=== PATIENT | female | born 1995 | race Two or more races ===

== ENCOUNTER 2023-06-12 10:08 | Outpatient (OUT) | payer OTHER, SELFPAY ==
--- NOTE | 2023-06-12 10:12 | US_ITS ---
[address] [address] Patient Name: PERNELL VAN MRN: [id number] date: 1995 Sex: F Assigned Patient Location: US Current Patient Location: US Accession/Order Number: [id number] Exam Date: 06/12/2023 10:12 Report Date: 06/12/2023 11:49 At the request of: MELCHOR ROMO Procedure: US OB transvaginal EXAMINATION: US OB transvaginal HISTORY: MISSED MENSES COMPARISON: No relevant comparison available. FINDINGS: Navarro intrauterine gestation Gestational sac: 2.79 cm, 7 weeks 4 days CRL: 2.2 cm, 8 weeks 6 days Yolk sac: 4.6 mm Heart rate: 172 bpm Cervix: Closed, 4.1 cm The uterus is normal, anteverted, anteflexed The right ovary is normal. The left ovary is not visualized Clinical age: Unknown Ultrasound age: 8 weeks 6 days Ultrasound MIKE: 01/16/2024 US/US OB transvaginal IMPRESSION: Viable navarro intrauterine gestation measuring 8 weeks 6 days Electronically authenticated by: DEV GUTIERREZ Date: 06/12/2023 11:49
== END 2023-06-12 10:09 | disposition home or self-care (01) ==
PROVIDERS: Visit Provider Obstetrics & Gynecology
DX: Z34.91 Encounter for supervision of normal pregnancy, unspecified, first trimester (principal); Z3A.08 8 weeks gestation of pregnancy
CPT/HCPCS: 76817

== ENCOUNTER 2023-09-01 08:26 | Outpatient (OUT) | payer OTHER, SELFPAY ==
--- NOTE | 2023-09-01 | US_ITS ---
[address] [address] Patient Name: PERNELL VAN MRN: [id number] date: 1995 Sex: F Assigned Patient Location: US Current Patient Location: Accession/Order Number: [id number] Exam Date: 09/01/2023 08:30 Report Date: 09/01/2023 09:58 At the request of: MELCHOR ROMO Procedure: US OB cervical length EXAMINATION: US OB cervical length, US OB anatomy HISTORY: CERVICAL LENGTH COMPARISON: No relevant comparison available. TECHNIQUE: Transabdominal sonographic examination was performed for obstetrical and evaluation. FINDINGS: Number: 1 Heart Rate: 141.0 bpm H.B. /min Amniotic Fluid Volume: Subjectively normal position: Cephalic presentation, longitudinal lie Placental Location: Anterior. Placental edge is 7.8 cm from the internal cervical os Cervix Length: 4.6 cm, closed Normal anatomy: Lateral ventricles, cerebellum, posterior fossa, nose, lips, orbits, four-chamber heart, RVOT, LVOT, diaphragm, stomach, kidneys, abdominal cord insertion, bladder, umbilical arteries, three-vessel cord, spine, extremities BIOMETRY: BPD: 4.8 cm 20 weeks 4 days , 56% HC: 18.2 cm 20 weeks 4 days, 49% AC: 15.2 cm 20 weeks 3 days, 43% FL: 3.4 cm 20 weeks 5 days , 50% EFW:359.6 grams; 13 ounces, 51% FL/AC: 22.3 FL/BPD: 70.3 HC/AC: 1.2 GESTATIONAL AGE: Age by EDC: 20 weeks 3 days Age by current US: 20 weeks 4 days MIKE by current US: 01/15/2024 MIKE by EDC: 01/16/2024 US/US OB cervical length IMPRESSION: Normal anatomy scan Closed cervix measuring 4.6 cm in length *Reference: [facility] Practice Guideline for the performance of Obstetric Ultrasound Examinations, May 24, 2007. Electronically authenticated by: DEV GUTIERREZ Date: 09/01/2023 09:58
--- NOTE | 2023-09-01 | US_ITS ---
[address] [address] Patient Name: PERNELL VAN MRN: [id number] date: 1995 Sex: F Assigned Patient Location: US Current Patient Location: US Accession/Order Number: [id number] Exam Date: 09/01/2023 08:30 Report Date: 09/01/2023 09:58 At the request of: MELCHOR ROMO Procedure: US OB anatomy EXAMINATION: US OB cervical length, US OB anatomy HISTORY: CERVICAL LENGTH COMPARISON: No relevant comparison available. TECHNIQUE: Transabdominal sonographic examination was performed for obstetrical and evaluation. FINDINGS: Number: 1 Heart Rate: 141.0 bpm H.B. /min Amniotic Fluid Volume: Subjectively normal position: Cephalic presentation, longitudinal lie Placental Location: Anterior. Placental edge is 7.8 cm from the internal cervical os Cervix Length: 4.6 cm, closed Normal anatomy: Lateral ventricles, cerebellum, posterior fossa, nose, lips, orbits, four-chamber heart, RVOT, LVOT, diaphragm, stomach, kidneys, abdominal cord insertion, bladder, umbilical arteries, three-vessel cord, spine, extremities BIOMETRY: BPD: 4.8 cm 20 weeks 4 days , 56% HC: 18.2 cm 20 weeks 4 days, 49% AC: 15.2 cm 20 weeks 3 days, 43% FL: 3.4 cm 20 weeks 5 days , 50% EFW:359.6 grams; 13 ounces, 51% FL/AC: 22.3 FL/BPD: 70.3 HC/AC: 1.2 GESTATIONAL AGE: Age by EDC: 20 weeks 3 days Age by current US: 20 weeks 4 days MIKE by current US: 01/15/2024 MIKE by EDC: 01/16/2024 US/US OB anatomy IMPRESSION: Normal anatomy scan Closed cervix measuring 4.6 cm in length *Reference: [facility] Practice Guideline for the performance of Obstetric Ultrasound Examinations, May 24, 2007. Electronically authenticated by: DEV GUTIERREZ Date: 09/01/2023 09:58
== END 2023-09-01 08:27 | disposition home or self-care (01) ==
LOC: US 08:26
PROVIDERS: Visit Provider Obstetrics & Gynecology
DX: Z34.92 Encounter for supervision of normal pregnancy, unspecified, second trimester (principal); Z36.89 Encounter for other specified antenatal screening; Z3A.20 20 weeks gestation of pregnancy
CPT/HCPCS: 76805; 76817

== ENCOUNTER 2023-09-22 20:30 | Outpatient (REF) | payer OTHER, SELFPAY ==
--- OUTSIDE RECORDS SUMMARY | 2023-09-22 20:34 | XMS_ITS | CCD ---
Author Name Unknown Address [address] [place] [address] Organization [facility] Care Team Providers Care Hot Braider Name Role Phone LindseyDary Unavailable [facility], DR MONTANEZ Primary Care Unavailable MARKER, DR MIRELES Admitting Unavailable MARKER, DR MIRELES Attending Unavailable GRECHNY, FRANK MOORE Consulting Unavailable MARKER, DR MIRELES Consulting Unavailable KLIPPERDEV Consulting Unavailable MARKER, DR MIRELES Admitting Unavailable MARKER, DR MIRELES Attending [facility] Primary Care Unavailable ZIEBER, DR POPPY Davis Consulting Unavailable MARKER, DR MIRELES Consulting Unavailable ELANBETI YOUNG Consulting Unavailable Rona Collado Unavailable Beti Steele Primary Care Provi amalia SHAKIRA OLVERA Attending Unavailable BETI CARVER Referring Unavailable BETI CARVER Primary Care Unavailable SHAKIRA OLVERA Referring Unavailable BETI CARVER Primary Care Unavailable BETI CARVER Referring Unavailable BETI CARVER Primary Care Unavailable Allergies Allergy Classification Reported Allergen(s) Allergy Type Date of Onset Reaction(s) Facility (6 sources) Amoxicillin; Translations: [Amoxicillin] Drug Allergy 07-24-2021 [facility] Repository (3 sources) Cefaclor; Translations: [Ceclor] Drug Allergy [facility] Repository (3 sources) Cefaclor; Translations: [CEFACLOR] Drug Allergy 07-24-2021 [facility] Medications Current Medications Medication Drug Class(es) Dates Sig (Normalized) Sig (Original) lidocaine 0.05 mg/mg medicated patch (1 source) Antiarrhythmic, Amide Local Anesthetic Start: 06-22-2023 apply 1 dose transdermal route once daily, then apply 1 dose transdermal route every twelve hours lidocaine (LIDODERM) 5 % Indications: DDD (degenerative disc disease), cervical Place 1 patch on the skin daily. Remove & Discard patch within 12 hours or as directed by 30 patch 1 06/22/2023 Active Problems Active Problems Problem Classification Problem Date Documented Date Episodic/Chronic Anxiety disorders (1 source) Anxiety attack ; Translations: [Panic disorder [episodic paroxysmal anxiety]] Onset: 08-07-2022 08-07-2022 Chronic Influenza (1 source) Influenza due to other identified influenza virus with other respiratory manifestations; Translations: [FLU D/T OTH ID FLU VIR OTH RSP MANF] Onset: 09-03-2022 Episodic Malaise and fatigue (1 source) Fatigue; Translations: [Chronic fatigue, unspecified] Onset: 11-27-2021 11-27-2021 Chronic Other connective tissue disease (3 sources) Pain in right leg; Translations: [PAIN IN RIGHT LEG] Onset: 09-03-2022 Episodic Other connective tissue disease (3 sources) Pain in left leg; Translations: [PAIN IN LEFT LEG] Onset: 09-02-2022 Episodic Other connective tissue disease (2 sources) Fibromyalgia; Translations: [Fibromyalgia] Onset: 03-16-2023 09-15-2023 Episodic Other connective tissue disease (2 sources) Fibromyalgia; Translations: [Fibromyalgia] Onset: 09-15-2023 Episodic Other non-traumatic joint disorders (4 sources) Pain in right hip; Translations: [PAIN IN RIGHT HIP] Onset: 09-01-2022 Episodic Other nutritional; endocrine; and metabolic disorders (1 source) Obesity, unspecified; Translations: [OBESITY UNSPECIFIED] Onset: 09-03-2022 Chronic Other nutritional; endocrine; and metabolic disorders (1 source) Body mass index (BMI) 31.0-31.9, adult; Translations: [BODY MASS INDEX BMI 31.0-31.9 ADULT] Onset: 09-03-2022 Chronic Other and delivery including normal (2 sources) ; Translations: [Encounter for supervision of normal , unspecified, unspecified trimester] Onset: 06-22-2023 06-22-2023 Episodic Residual codes; unclassified (1 source) Procedure and treatment not carried out due to patient leaving prior to being seen by health care provider Episodic Spondylosis; intervertebral disc disorders; other back problems (1 source) Degeneration of cervical intervertebral disc; Translations: [Other cervical disc degeneration, unspecified cervical region] Onset: 10-17-2022 10-17-2022 Chronic Substance-related disorders (1 source) Nicotine dependence, cigarettes, uncomplicated; Translations: [NICOTINE DEPEND CIGARETTES UNCOMP] Onset: 09-03-2022 Chronic Past or Other Problems Problem Classification Problem Date Documented Da te Episodic/Chronic Deficiency and other anemia (1 source) Iron deficiency anemia; Translations: [Iron deficiency anemia, unspecified] Onset: 11-27-2021 11-27-2021 Episodic Fluid and electrolyte disorders (1 source) Hyponatremia; Translations: [Hypo-osmolality and hyponatremia] Onset: 11-27-2021 11-27-2021 Episodic Headache; including migraine (2 sources) Cough headache syndrome; Translations: [Primary cough headache] Onset: 05-19-2022 05-19-2022 Episodic Immunizations and screening for infectious disease (1 source) Contact with and (suspected) exposure to other viral communicable diseases Onset: 09-02-2021 Resolved: 09-02-2021 Episodic Mood disorders (1 source) Mood disorders Onset: 10-07-2022 10-07-2022 Nonspecific chest pain (1 source) Precordial pain; Translations: [Other chest pain] Onset: 12-26-2021 12-26-2021 Episodic Nutritional deficiencies (1 source) Cobalamin deficiency; Translations: [Deficiency of other specified B group vitamins] Onset: 12-26-2021 12-26-2021 Episodic Other connective tissue disease (1 source) Pain in right hand; Translations: [Pain in right hand] Onset: 02-10-2022 Resolved: 01-14-2023 01-14-2023 Episodic Other nervous system disorders (1 source) Paresthesia of hand ; Translations: [Anesthesia of skin] Onset: 01-14-2023 01-14-2023 Episodic Other non-traumatic joint disorders (1 source) Pain of left shoulder joint; Translations: [Pain in left shoulder] Onset: 11-27-2021 11-27-2021 Episodic Other screening for suspected conditions (not mental disorders or infectious disease) (2 sources) Other specified abnormal findings of blood chemistry; Translations: [Possible ] Onset: 09-03-2022 Resolved: 06-22-2023 06-22-2023 Episodic Other upper respiratory disease (1 source) Nasal sinus problem; Translations: [Other specified disorders of nose and nasal sinuses] Onset: 05-19-2022 05-19-2022 Episodic Spondylosis; intervertebral disc disorders; other back problems (2 sources) Thoracic nerve root pain; Translations: [Radiculopathy, thoracic region] Onset: 11-27-2021 11-27-2021 Episodic Results Test Name Value Interpretation Reference Range Facility AFP panelon 08-15-2023 AFP SINGLE MARKER SCRN, MATERNAL, SERUM SEE COMMENTS 08/18/2023 01:[address] [facility] Comment on above: Result Comment: NOTE Test Result Flag Unit RefValue AFP Single Marker SCRN, Maternal, S Results Summary Normal risk Neural tube defect risk estimate 1/12,000 AFP 31.0 ng/mL AFP MoM 0.80 MoM <2.50 INTERPRETATION Screen negative for neural tube defects. RECOMMENDED FOLLOW UP None. Specimen collection date 08/15/23 Maternal date of 89 Calculated age at MIKE 28 years Maternal Weight 209 lbs Insulin dependent diabetes No Patient race non-Black Current cigarette smoking status Smoker MIKE by U/S scan 01/16/24 GA on collection by U/S scan 18,0 wk,d GA used in risk estimate Scan estimate Number of Fetuses 1 Number of Chorions Unknown IVF No Prev w/ Neural Tube Unknown Defect Patient or father of baby has a Unknown NTD Initial or repeat testing Initial testing Physician Phone Number [phone] GENERAL TEST INFORMATION See Note This screening provides an estimation of risk, not a diagnosis. Incorrect or incomplete information may significantly alter results. Results may be unreliable in twin pregnancies with a demise. Results are not available for pregnancies with triplets and higher-order multiples. A positive result occurs when the AFP MoM equals or exceeds 2.5. Screen results and family history influence individual risk. If there is a family history of a neural tube defect, chromosome abnormality, or other inherited condition, consider the option of a genetic consultation. For further information, please contact the maternal screening laboratory at . ADDITIONAL INFORMATION This test was developed and its performance characteristics determined by [facility] in a manner consistent with CLIA requirements. This test has not been cleared or approved by the U.S. Food and Drug Administration. Test Performed by: [facility] [address] [place] [address] Cigarette Making Machine Hopper Feeder: Carson Delcid M.D. Ph.D.; CLIA# [id number] Performed By: #### [id number] #### [facility] ([id number]) [address] [place] [address], [place] [address] CULTURE URINEon 09-02-2022 CULTURE URINE Culture Observations: MODERATE GROWTH OF MIXED GENITAL NAVEED. NO POTENTIAL PATHOGENS SEEN. Normal [facility] Comment on above: Performed By: #### U RCX #### [facility] [address] [place] [address] Dr. Nini Bliss D-DIMERon 09-02-2022 D-DIMER 0.68 mg/L FEU Critically high <=0.59 [facility] Comment on above: Performed By: #### D DIM #### [facility] [address] [place] [address] Dr. Nini Bliss D-DIMER COMMENTS SEE BELOW Normal [facility] Comment on above: Result Comment: Incr eases in D-Dimer concentration observed with thromboembolic events can be variable due to localization, size, and age of the thrombus. Therefore, a thromboembolic event cannot be diagnosed with certainty on the basis of the reference range. D-Dimers may also be elevated for a variety of disorders including: advanced age, , coronary disease, cancer, liver disease, infection, inflammation, hematoma, DIC, trauma, post-surgery, diabetes, thrombolytic or anticoagulant therapy, stress, and generalized hospitalization. Performed By: #### D DIM #### [facility] [address] [place] [address] Dr. Nini Bliss ER URINE PROFILEon 3 Bilirubin Ql (U) Negative Normal NEGATIVE [facility] Comment on above: Performed By: #### Trudi MATUTE UMICRO #### [facility] [address] [place] [address] Dr. Nini lBiss Clarity (U) CLEAR Normal CLEAR [facility] Comment on above: Performed By: #### Trudi MATUTE UMICRO #### [facility] [address] [place] [address] Dr. Nini Bliss Color (U) YELLOW Normal YELLOW [facility] Comment on above: Performed By: #### Trudi MATUTE UMICRO #### [facility] [address] [place] [address] Dr. Nini CACERES A micrscopic examination will be performed if indicated. Normal [facility] Comment on above: Performed By: #### Trudi MATUTE UMICRO #### [facility] [address] [place] [address] Dr. Nini Bliss Glucose Ql (U) Negative Normal NEGATIVE [facility] Comment on above: Performed By: #### Trudi MATUTE UMICRO #### [facility] [address] [place] [address] Dr. Nini Bliss Hemoglobin Ql (U) LARGE Abnormal NEGATIVE [facility] Comment on above: Performed By: #### Trudi MATUTE UMICRO #### [facility] [address] [place] [address] Dr. Nini Bliss Ketones Ql (U) Negative Normal NEGATIVE [facility] Comment on above: Performed By: #### Trudi MATUTE UMICRO #### [facility] [address] [place] [address] Dr. Nini Bliss LEUKOCYTES TRACE Abnormal NEGATIVE [facility] Comment on above: Performed By: #### Trudi MATUTE UMICRO #### [facility] [address] [place] [address] Dr. Nini Bliss Nitrite Ql (U) Negative Normal NEGATIVE [facility] Comment on above: Performed By: #### Trudi MATUTE UMICRO #### [facility] [address] [place] [address] Dr. Nini Bliss pH (U) 5.0 [pH] Normal 5-9 [facility] Comment on above: Performed By: #### NATHANAEL ROJASICRO #### [facility] [address] [place] [address] Dr. Nini Bliss Protein (U) [Mass/Vol] 100 mg/dL Abnormal NEGATIVE/ TRACE [facility] Comment on above: Performed By: #### Trudi MATUTE UMICRO #### [facility] [address] [place] [address] Dr. Nini Bliss SPEC GRAVITY 1.025 Normal 1.005-<=1.025 [facility] Comment on above: Performed By: #### Trudi MATUTE UMICRO #### [facility] [address] [place] [address] Dr. Nini Bliss UR MICRO IND INDICATED Normal [facility] Comment on above: Performed By: #### NATHANAEL ROJASICRO #### [facility] [address] [place] [address] Dr. Nini Bliss Urobilinogen Qn (U) 0.2 {Michelle'U}/dL Normal 0.2 - 1.0 [facility] Comment on above: Performed By: #### Trudi MATUTE ICRO #### [facility] [address] [place] [address] Dr. Nini Bliss INFLUENZA A AND B AGon 09-02 INFLUENZA A AG Positive Abnormal NEGATIVE SEE COMMENT [facility] Comment on above: Performed By: #### I NFLUAB #### [facility] [address] [place] [address] Dr. Nini Bliss INFLUENZA B AG Negative Normal NEGATIVE SEE COMMENT [facility] Comment on above: Performed By: #### I NFLUAB #### [facility] [address] [place] [address] Dr. Nini Bliss URINE MICROSCOPIC ONLYon BACTERIA MODERATE Abnormal NONE SEEN [facility] Comment on above: Performed By: #### Trudi MATUTE UMICRO #### [facility] [address] [place] [address] Dr. Nini Bliss Bacteria identified Cx Nom (U) INDICATED Normal [facility] Comment on above: Performed By: #### E JUJU, UMICRO #### [facility] [address] [place] [address] Dr. Nini Bliss CAST NONE SEEN Normal NONE SEEN [facility] Comment on above: Performed By: #### E JUJU, UMICRO #### [facility] [address] [place] [address] Dr. Nini Bliss Crystals LM Nom (Urine sed) NONE SEEN Normal NONE SEEN [facility] Comment on above: Performed By: #### Trudi MATUTE UMICRO #### [facility] [address] [place] [address] Dr. Nini Bliss Epithelial cells LM Ql (Urine sed) FEW Abnormal NONE SEEN /RARE [facility] Comment on above: Performed By: #### Trudi MATUTE UMICRO #### [facility] [address] [place] [address] Dr. Nini Bliss MUCOUS NONE SEEN Normal NONE SEEN [facility] Comment on above: Performed By: #### Trudi MATUTE UMICRO #### [facility] [address] [place] [address] Dr. Nini Bliss RBC 75-100 Abnormal 0-2 [facility] Comment on above: Performed By: #### Trudi MATUTE UMICRO #### [facility] [address] [place] [address] Dr. Nini Bliss WBC 0-2 Abnormal NONE SEEN [facility] Comment on above: Performed By: #### Trudi MATUTE UMICRO #### [facility] [address] [place] [address] Dr. Nini Bliss US BAR DOP LEG BILon 023 US BAR DOP LEG ABISAI EXAMINATION: US BAR DOP LEG ABISAI HISTORY: Pain in bilateral legs ; right hip pain; elevated d-dimer COMPARISON: No relevant comparison available. FINDINGS: REGION: Bilateral lower extremities THROMBI: None. COMPRESSIBILITY: Normal compressibility. FLOW: Normal waveform and antegrade flow between 5 and 20 cm/s. OTHER: None. IMPRESSION: 1. No deep vein thrombus within the right or left lower extremity. Electronically authenticated by: POPPY ROBERT Date: 2022-09-02 07:57 Normal [facility] XR HIP RT 2 3V W PELVISon XR HIP RT 2 3V W PELVIS EXAM: XR HIP RT 2 3V W PELVIS HISTORY: Right hip pain COMPARISON: None. TECHNIQUE: AP pelvis and 2 views of the right hip FINDINGS: No osseous lesion, fracture, dislocation or subluxation. Joint spaces are normal. No visualized effusion. IMPRESSION: Normal x-rays Electronically authenticated by: DEV MARTINEZ Date: 2022-09-01 22:33 Normal [facility] COVID Quick Testingon 2021 Result Negative [facility] Other Vital Signs Date Time Vital Sign Value Performing Clinician Facility 09-15-2023 09:28-0500 Body height 166.4 cm Shakira Lindene V, PA [facility] 09-15-2023 09:28-0500 Body mass index (BMI) [Ratio] 34.25 kg/m2 Shakira Shendge V, PA Work Phone: [facility] [employer] [facility] 09-15-2023 09:28-0500 Body weight 94.8 kg Shakira Shendge V, PA Work Phone: [facility] 09-15-2023 09:28-0500 Diastolic blood pressure 60 mm[Hg] Shakira Shendge V, PA Work Phone: [facility] 09-15-2023 09:28-0500 Respiratory rate 18 /min Shakira Shendge V, PA Work Phone: [facility] 09-15-2023 09:28-0500 Systolic blood pressure 106 mm[Hg] Shakira Shendge V, PA Work Phone: [facility] 09-02-2021 14:00-0500 Body height 168.91 cm Dary Portillo Other [facility] Other 09-02-2021 14:00-0500 Body mass index (BMI) [Ratio] 30.2 kg/m2 Dary Portillo Other [facility] Other 09-02-2021 14:00-0500 Body temperature 97.1 [degF] Dary Portillo Other [facility] Other 09-02-2021 14:00-0500 Body weight 86.18 kg Dary Portillo Other [facility] Other 09-02-2021 14:00-0500 Respiratory rate 18 /min Dary Portillo Other [facility] Other 09-02-2021 14:00-0500 SaO2% (BldA) [Mass fraction] 99 % Dary Portillo Other [facility] Other Encounters Encounter Date Encounter Type Care Provider Facility Start: 09-18-2023 [facility] Start: 09-15-2023 End: 09-15-2023 ambulatory SHAKIRA ESTRADA [facility] Start: 09-15-2023 End: 09-15-2023 Office outpatient visit 15 minutes Shakira MARIE Work Phone: [facility] Comment on above: Fibromyalgia (Primar y Dx) Start: 08-15-2023 End: 08-16-[address] [facility] Start: 09-02-2022 End: 09-03-[address] ALINE MORELAND Facility:[facility] Start: 09-01-2022 End: 09-02-[address] DOCTOR MARR Facility:[facility] Start: 08-30-2022 (URG) Urgent Care Visit Rona burns [facility] Start: 08-30-2022 End: 08-30-2022 ambulatory Rona Collado Other [facility] Other Start: 09-02-2021 End: 09-02-2021 ambulatory Dary Wolfeault Other [facility] Other Start: 09-02-2021 Office outpatient vi sit 15 minutes Dary Portillo [facility] Procedures Date Procedure Procedure Detail Performing Clinician Start: 10-07-2022 Adult depression scr eening assessment FRANK Sanabria Work Phone: Start: 08-06-2021 History of tonsillectomy S/P tonsill ectomy FRANK Sanabria Work Phone: Plan of Treatment Date Care Activity Detail Author Start: 09-15-2024 Adult BMI Screening Adult BMI Screening [facility] Start: 06-22-2024 Tobacco Screening Tobacco Screening [facility] Start: 02-01-2024 End: 02-01-2024 Patient encounter procedure 02/01/2024 8:45 AM EDT Office Visit [facility] [address] [place] [phone] Shakira Estrada PA [address] [place] [phone] [facility] Start: 12-21-2023 End: 12-21-2023 Patient encounter procedure 12/21/2023 7:40 AM EDT Office Visit [facility] [address] [place] [address] [place] [id number] Beti Carver, [employer]ACH[employer] SPECIALIST [address] [facility] [address], [place] [address] [facility] Start: 10-07-2023 Depression Screening Depression Screening [facility] Start: 04-24-2023 Influenza vaccination Influenza Vaccine [facility] Start: 04-12-2017 DTaP,Tdap and Td Vaccines (7 - Tdap) DTaP,Tdap and Td Vaccines (7 - Tdap) [facility] Start: 2015 Screening for malignant neoplasm of cervix Pap Smear [facility] Start: 2012 Adult BMI Follow Up Plan Adult BMI Follow Up Plan [facility] Start: 1994 Tobacco Counseling Tobacco Counseling [facility] Payers Date Payer Category Payer Private Health Insurance [facility] [employer]/[place] [id number] 2022-Present [phone] [address] [address] [place] [address] [id number] 1994 Unknown [id number] 1994 Unknown [id number] 1994 Unknown [id number] 1994 Unknown [id number] 1994 Unknown [id number] 1959 Unknown [id number] Unknown [id number] Social History Date Type Detail Facility Start: 10-07-2022 End: 01-21-[address] [facility] Start: 01-14-2023 [facility] History of tobacco use Cigarette Smoker P [facility] Start: 01-14-2023 Tobacco use and exposure Smoke less tobacco non-user [facility] Start: 09-15-2023 Alcohol intake Lifetime non-d minerva (finding) [facility] Start: 10-07-2022 End: 01-21-20[address] of [address] [facility] Do you belong to any clubs or organizations such as rastafari groups, unions, fraternal or athletic groups, or school groups? No [facility] Are you now , , , , never or living with a partner? [facility] How often to you hav e a drink containing alcohol? Never [facility] How many standard dr inks containing alcohol do you have on a typical day? Patient does not drink [facility] How hard is it for y ou to pay for the very basics like food, housing, medical care, and heating Not very hard [facility] Start: 11-26-[address] [facility] Start: 1994 Sex Assigned At Female P [facility] Start: 08-03-2021 Gender identity Identifies as female gender (finding) [facility] History of Present illness Narrative 09-15-2023 FRANK Sanabria - 09/15/2023 9:30 AM EST Note Date & Type Note Facility 09-15-2023 History of Present illness Narrative Images from the original note were not included. [id number] [phone] Date of Service: 09/15/2023 Thank you for the referral to evaluate Pernell Ryan for widespread pain This is a new patient and is seen at the request of SEAN ZUÑIGA. Chief Complaint: Widespread pain SUBJECTIVE: Pernell Ryan is a 27 y.o. female who presents today for follow-up evaluation of widespread pain Patient got in April 2023 I discontinued both Cymbalta and tizanidine Her symptoms are persistent at this time and there is increased and odd work hours and her sleep is affected Visit history from 04/16/2023 Pain has improved by 40-50% Sleep has been more restful Visit history from 03/16/2023 Pernell Ryan is a 27 y.o. female who presents today for evaluation of widespread pain PAIN: Location: widespread, back, neck and head is worse Timing (When do the symptoms occur): all day long Duration/Onset: 2012 Severity: 4-6/10 Quality : deep bony pain Context (How did this begin): Symptoms started in 2012 got progressively worse, especially due to high stress around 2016 when she was going through divorce Modifying Factors (What makes it better or worse):heat makes it worse , cold helps Associated signs and symptoms: chronic fatigue, tingling and numbness in arms , sleep disturbances , works third shift 9:30 pm to 6:30 am since 2.5 years. Before that she worked during the day , she thinks her arms swell up, and experiences stiffness Previous medications/treatment: Biofreeze patches Mom- MS maternal aunt lupus maternal cousin fibromyalgia Current Outpatient Medications Medication Sig Dispense Refill lidocaine (LIDODERM) 5 % Place 1 patch on the skin daily. Remove & Discard patch within 12 hours or as directed by MD 30 patch 1 No current facility-administered medications for this visit. reviewed. Patient Active Problem List Diagnosis S/P tonsillectomy Iron deficiency anemia Hyponatremia Chronic fatigue Pain in joint of left shoulder Radicular pain of thoracic region Cervical muscle pain Vitamin B 12 deficiency Mid sternal chest pain Cough headache Chronic daily headache Sinus pressure Anxiety attack DDD (degenerative disc disease), cervical Numbness and tingling in left hand Fibromyalgia syndrome reviewed. Past Surgical History: Procedure Laterality Date ADENOIDECTOMY Jul 29 2021 SECTION TONSILLECTOMY Jul 29 2021 TONSILLECTOMY ADENOIDECTOMY Bilateral 07/29/2021 Performed by Emmanuel Spencer MD PhD at [facility] reviewed. Social History Tobacco Use Smoking status: Every Day Types: Cigarettes Smokeless tobacco: Never Vaping Use Vaping Use: Never used Substance Use Topics Alcohol use: Never Drug use: Never reviewed. Past Medical History: Diagnosis Date Allergic Childhood Amoxicillin; ceclor Allergic rhinitis Childhood Seasonal allergies Asthma Childhood Not put on my records, they thought it would go away Back pain Teen years to present Breathlessness lying flat Cough headache 05/19/2022 Fibromyalgia syndrome 03/16/2023 Numbness Obesity Pneumonia Childhood Mycoplasma Scoliosis Childhood Scoliosis Strep throat Tonsillar abscess Tonsillitis Varicella Toddler Vaccinated but got chicken pox a little later Visual impairment glasses Weakness reviewed. Social History Social History Narrative Not on file reviewed Family History Problem Relation Age of Onset COPD Mother Miscarriages / Stillbirths Mother Arthritis Father Hypertension Father Depression Brother Alcohol abuse Paternal Uncle Heart disease Maternal Grandmother Kidney disease Maternal Grandmother Alcohol abuse Maternal Grandmother Diabetes Maternal Grandmother Lung cancer Maternal Grandmother Heart disease Maternal Grandfather Hypertension Paternal Grandmother Stroke Paternal Grandmother reviewed. Allergies Allergen Reactions Amoxil [Amoxicillin] Ceclor [Cefaclor] reviewed. The following portions of the patient's history were reviewed and updated as appropriate: allergies, current medications, past family history, past medical history, past social history, past surgical history and problem list. REVIEW OF SYSTEMS: CONSTITUTIONAL: Admits: [] Weight Loss [] Fever [x] Frequent Night Sweats [x]fatigue OPHTHALMOLOGIC: Admits: [] Glaucoma [] History or Current Inflammatory Eye Disease [] Cataracts ENT: Admits: [] Oral/Nasal Ulcers [] epistaxis [] Recurrent Sinusitis [x] Dry Eyes [] Dry mouth CARDIOVASCULAR: Admits: [] Chest pain [] Pericarditis/Pleuritis [] Palpitations [] Edema RESPIRATORY: Admits: [] hemoptysis [] Dyspnea on Exertion [] Cough: smokes 2 cigarettes a day x on and off for last 7 years [] Wheezing GASTROINTESTINAL: Admits: [] Bloody Stool [x] Diarrhea [] Vomitting constipation+ GENITOURINARY: Admits: [] Blood in urine [] Genital Ulcers [] Burning/pain with urination MUSCULOSKELETAL: Admits: [x] Muscle Pain [x] Joint Pain INTEGUMENTARY: Admits: [] Skin changes [] Sclerodactyly [] Raynauds [x] Photosensitivity [] Alopecia NEUROLOGIC: Admits: [x] Recurrent Headaches [x] Limb Weakness [x] Numbness/Tingling PSYCHIATRIC: Admits: [x] Insomnia [x] Depression [x] Anxiety ENDOCRINE: Admits: [] Thyroid abnormalities HEMATOLOGY/LYMPH: Admits: [] Notable Swollen Lymph Nodes [x] History of Cytopenias [x] Bruising tendency [] History of DVT/PE miscarriages: no All non checked boxes, patient denies. All other 10 point ROS reviewed and negative. PHYSICAL EXAMINATION: Constitutional: BP 106/60 Resp 18 Ht 166.4 cm (5' 5.5 ) Wt 94.8 kg (209 lb) LMP 12/24/2022 (Approximate) BMI 34.25 kg/m : reviewed Comfortable, pleasant, no acute distress Labs & Imaging: Labs and Imaging reviewed and discussed with the patient during the visit. No results found for: RF , C3 , C4 Lab Results Component Value Date WBC 7.2 06/15/2023 HGB 13.0 06/15/2023 HCT 38.4 06/15/2023 MCV 83 06/15/2023 PLT 218 06/15/2023 Lab Results Component Value Date CREATININE 0.77 11/27/2021 BUN 8 11/27/2021 K 3.8 11/27/2021 CL 103 11/27/2021 CO2 30 11/27/2021 Lab Results Component Value Date ALT 13 11/27/2021 AST 18 11/27/2021 ALKPHOS 84 11/27/2021 Lab Results Component Value Date SEDRATE 3 02/11/2023 Lab Results Component Value Date CRP 0.4 02/11/2023 MR brain with and without contrast Result Date: 01/13/2023 Narrative: STUDY: MR BRAIN W WO CONT INDICATION: Cervical radiculopathy; Cervical spondylosis without myelopathy. COMPARISON: None TECHNIQUE: * Routine multiplanar multisequence MR imaging of the brain was performed with and without intravenous contrast. * Contrast: 9 mL Prohance FINDINGS: No evidence of acute infarct, intracranial hemorrhage, mass effect, midline shift or extra-axial fluid. Ventricles, sulci and cistern are unremarkable. Brain volume is age appropriate. No significant parenchymal signal abnormality. Globes and orbits are unremarkable. Paranasal sinuses are clear. Temporal bones are clear. No evidence of abnormal enhancement. IMPRESSION: * Unremarkable brain, by MR. Finalized by Christopher Archer on 01/13/2023 8:39 AM ASSESSMENT/PLAN: Pernell Ryan is a 27 y.o. female patient presents for evaluation of widespread pain Patient established care with mi on 02/11/2023 ICD-10-CM 1. Fibromyalgia M79.7 Orders Placed This Encounter Procedures Ambulatory referral to Massage Therapy ([facility]) Standing Status: Future Standing Expiration Date: 09/15/2024 Referral Priority: Routine Referral Type: Physical Therapy Number of Visits Requested: 1 Ambulatory referral to Physical Therapy Standing Status: Future Standing Expiration Date: 09/15/2024 Referral Priority: Routine Referral Type: Physical Therapy Referral Reason: Specialty Services Required Requested Specialty: Rehabilitation Number of Visits Requested: 1 #Fibromyalgia The patient has widespread pain, on both sides of the body, above and below the waist. 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 - She is currently and due date is in DECEMBER 2023 - discontinue Cymbalta tizanidine until after the delivery - Physical therapy referral - massage therapy referral - consider magnesium supplements -- talk with OB before taking it # medication monitoring encounter NSAID potential side effects potential side effects of NSAID's including abnormal kidney function, gastrointestinal pain/heartburn/nausea, potential for gastritis/gastric ulcer with chronic use, tinnitus, rash, increase risk of cardiac events Follow up in 3 month Total time spent with the patient face to face was 20 minutes which included obtaining and reviewing history, performing an exam, educating and counseling the patient, communicating test results to the patient. Preparing to see the patient (reviewing all results, history, medications, my office notes, other physician notes), ordering tests/medications/referrals, documenting in the patient's health record time spent was 10 minutes This note was created with the assistance of a speech recognition program. While intending to generate a timely document that accurately reflects the content of the visit, no guarantee can be provided that every grammatical or spelling mistake has been or will be identified or corrected. Thank you for your understanding. [facility] Shakira Estrada PA-C [address] [place] [address] Office [phone] FRANK Sanabria 09/15/23 1037 documented in this encounter [facility] Evaluation note 08-30-2022 Note Date & Type Note Facility 08-30-2022 Evaluation note Encounter Date Diagnosis Assessment Notes Aug, Patient left without being seen (ICD-10 - Z53.21) [facility] Other Evaluation note 09-02-2021 Note Date & Type Note Facility 09-02-2021 Evaluation note Encounter Date Diagnosis Assessment Notes Aug, Contact with and (suspected) exposure to other viral communicable diseases (ICD-10 - Z20.828) Even though COVID RAPID test is NEGATIVE, I am highly suspicious at this time you may be positive due to the symptoms. Recommend patient follow Quarantine guidelines until you follow up with PCP.. Recommend OTC medication such as Mucinex, Sea salt nasal spray, Cepecol, Tylenol, Zyrtec, as they can help with symptoms VIRAL URI HANDOUT GIVEN TO PATIENT THAT RECOMMENDS OTC MEDICATIONS, FOLLOW UP AND WHEN TO SEEK EMERGENCY TREATMENT Aug, Other Additional time spent conducting pre-visit phone call, screening for symptoms, instructions on social distancing, application and removal of PPE, and cleaning of examination room, equipment and supplies was preformed. Patient education given for testing methodology and results. Patient care instructions given in writting by [facility] document. [facility] Other History general Narrative - Reported 07-24-2021 Note Date & Type Note Facility 07-24-2021 History general N arrative - Reported Type Surgical History tonsillectomy and adenoidectomy 07/2021 [facility] Other Evaluation note Note Date & Type Note Facility Evaluation note Diagnosis Fibromyalgia- Primary Unspecified myalgia and myositis documented in this encounter [facility] Instructions Note Date & Type Note Facility Instructions Not on filedocumented in this en counter [facility] Summary Purpose Family History No Family History Records FoundNo Family History Records FoundNo Family History Records Found Advance Directives No Advanced Directives Records FoundNo Advanced Directives Records FoundNo Advanced Directives Records Found Reason for Referral Specialty Diagnoses / Procedures Referred By Osman loaiza Referred To Contact Rehabilitation Diagnoses [place] [address] [place] [address] [address] [place] [address] [facility] [address] [place] [address] Referral ID Status Reason Start Date Expiration Date Visits Requested Visits Authorized [id number] Authorized Specialty Services Required 09/15/2023 09/14/2024 1 1 Specialty Diagnoses / Procedures Referred By Contshelly t Referred To Contact Diagnoses Fibromyalgia Shakira Estrada PA [address] [facility] [place] [address] Referral ID Status Reason Start Date Expiration Date V isits Requested Visits Authorized [id number] Pending Review 09/15/2023 09/14/2024 1 1 Additional Source Comments REASON FOR VISIT (unrecogniz ed section and content) #17 SILVER VAN, EXPOSURE, LO SS OF TASTE, H/A, RUNNY NOSE, COVID Provider VisitSORE THROAT, CONGESTION, COUGH INFORMATION SOURCE (unrecogn ized section and content) DATE CREATED AUTHOR 09/03/2022 [facility] DATE CREATED AUTHOR AUTHOR'S ORGANIZ ATION 09/18/2023 [facility] DATE CREATED AUTHOR AUTHOR'S ORGANIZ ATION 09/20/2023 [facility] Care Teams (unrecognized sec tion and content) Hot Braider Relationship Specialty Start Date End Date Beti Carver, GUM MIXER[employer]MACHINE SHOP SPECIALIST [address], [place] [address] [place], [place] [id number] PCP - General Family Medicine 11/27/21 FOR RECORDS PERTAINING TO PATIENTS WHO ARE OR HAVE BEEN ENROLLED IN A CHEMICAL DEPENDENCY/SUBSTANCEABUSE PROGRAM, SOME INFORMATION MAY BE OMITTED. This clinical summary was aggregated from multiple sources. Caution should be exercised in using it in the provision of clinical care. This summary normalizes information from multiple sources, and as a consequence, information in this document may materially change the coding, format and clinical context of patient data. In addition, data may be omitted in some cases. CLINICAL DECISIONS SHOULD BE BASED ON THE PRIMARY CLINICAL RECORDS. [facility] [employer] [facility]. provides no warranty or guarantee of the accuracy or completeness of information in this document.
[2023-09-26 14:10] LABS: Age Gdln ACOG Testing Note (.); IGP, rfx Aptima HPV ASCU Note (.)
== END 2023-09-22 20:31 | disposition home or self-care (01) ==
LOC: LAB 20:30
PROVIDERS: Visit Provider Physician Assistant
DX: Z01.419 Encounter for gynecological examination (general) (routine) without abnormal findings (principal)
CPT/HCPCS: G0145

== ENCOUNTER 2023-10-02 03:00 | Emergency (ER) | payer OTHER, SELFPAY ==
[2023-10-02] VITALS (15 sets, daily range): BP systolic 112; BP diastolic 70; PULSE 76–92; RESP 7–24; TEMP 36.9; O2SAT 99–100; BMI 34.9
--- OUTSIDE RECORDS SUMMARY | 2023-10-02 03:16 | XMS_ITS | CCD ---
Author Name Unknown Address [address] [place] [address] Organization [facility] Care Team Providers Care Integrated Circuit Layout Designer Name Role Phone LindseyDary Unavailable [facility], DR MONTANEZ Primary Care Unavailable MARKER, DR MIRELES Admitting Unavailable MARKER, DR MIRELES Attending Unavailable GRECHNY, FRANK MOORE Consulting Unavailable MARKER, DR MIRELES Consulting Unavailable KLIPPERDEV Consulting Unavailable MARKER, DR MIRELES Admitting Unavailable MARKER, DR MIRELES Attending [facility]available [facility] Primary Care Unavailable ZIEBER, [...] sources) Amoxicillin; Translations: [Amoxicillin] Drug Allergy 07-24-2021 [facility] Repository (3 sources) Cefaclor; Translations: [Ceclor] Drug Allergy [facility] Repository (3 sources) Cefaclor; Translations: [CEFACLOR] Drug Allergy 07-24-2021 [facility] Medications Current Medications Medication Drug [...] INDEX BMI 31.0-31.9 ADULT] Onset: 09-03-2022 Chronic Residual codes; unclassified (1 source) Procedure and [...] left shoulder] Onset: 11-27-2021 11-27-2021 Episodic Other and delivery including normal (2 sources) ; Translations: [Encounter for supervision of normal , unspecified, unspecified trimester] Onset: 06-22-2023 06-22-2023 Episodic Other screening for suspected conditions (not [...] SERUM SEE COMMENTS 08/18/2023 01:57 PM Normal [facility] Comment on above: Result Comment: NOTE Test [...] repeat testing Initial testing Physician Phone Number [phone] GENERAL TEST INFORMATION See Note This screening [...] developed and its performance characteristics determined by [facility] in a manner consistent with CLIA requirements. This test has not been cleared or approved by the U.S. Food and Drug Administration. Test Performed by: [facility] [address] [place] [address] Falsework Builder: Carson Delcid M.D. Ph.D.; CLIA# [id number] Performed By: #### 4 [id number] #### [facility] ([id number]) [address] [place] [address], [place] [address] CULTURE URINEon 09-02-2022 CULTURE URINE Culture Observations: MODERATE GROWTH OF MIXED GENITAL NAVEED. NO POTENTIAL PATHOGENS SEEN. Normal [facility] Comment on above: Performed By: #### U RCX #### [facility] [address] [place] [address] Dr. Nini Bliss D-DIMERon 09-02-2022 D-DIMER 0.68 mg/L FEU Critically high <=0.59 [facility] Comment on above: Performed By: #### D DIM #### [facility] [address] [place] [address] Dr. Nini Bliss D-DIMER COMMENTS SEE BELOW Normal [facility] Comment on above: Result Comment: Incr eases [...] hospitalization. Performed By: #### D DIM #### [facility] [address] [place] [address] Dr. Nini Bliss ER URINE PROFILEon 3 Bilirubin Ql (U) Negative Normal NEGATIVE [facility] Comment on above: Performed By: #### Trudi MATUTE UMICRO #### [facility] [address] [place] [address] Dr. Nini Bliss Clarity (U) CLEAR Normal CLEAR The [facility] Comment on above: Performed By: #### Trudi MATUTE UMICRO #### [facility] [address] [place] [address] Dr. Nini Bliss Color (U) YELLOW Normal YELLOW [facility] Comment on above: Performed By: #### Trudi AMTUTE UMICRO #### [facility] [address] [place] [address] Dr. Nini CACERES A micrscopic examination will be performed if indicated. Normal The [facility] Comment on above: Performed By: #### Trudi MATUTE UMICRO #### [facility] [address] [place] [address] Dr. Nini Bliss Glucose Ql (U) Negative Normal NEGATIVE The [facility] Comment on above: Performed By: #### Trudi MATUTE UMICRO #### [facility] [address] [place] [address] Dr. Nini Bliss Hemoglobin Ql (U) LARGE Abnormal NEGATIVE The [facility] Comment on above: Performed By: #### Trudi MATUTE UMICRO #### [facility] [address] [place] [address] Dr. Nini Bliss Ketones Ql (U) Negative Normal NEGATIVE The [facility] Comment on above: Performed By: #### Trudi MATUTE UMICRO #### [facility] [address] [place] [address] Dr. Nini Bliss LEUKOCYTES TRACE Abnormal NEGATIVE [facility] Comment on above: Performed By: #### Trudi MATUTE UMICRO #### [facility] [address] [place] [address] Dr. Nini Bliss Nitrite Ql (U) Negative Normal NEGATIVE The [facility] Comment on above: Performed By: #### Trudi MATUTE UMICRO #### [facility] [address] [place] [address] Dr. Nini Bliss pH (U) 5.0 [pH] Normal 5-9 The [facility] Comment on above: Performed By: #### NATHANAEL ROJASICRO #### [facility] [address] [place] [address] Dr. Nini Bliss Protein (U) [Mass/Vol] 100 mg/dL Abnormal NEGATIVE/ TRACE The [facility] Comment on above: Performed By: #### Trudi MATUTE UMICRO #### [facility] [address] [place] [address] Dr. iNni Bliss SPEC GRAVITY 1.025 Normal 1.005-<=1.025 The [facility] Comment on above: Performed By: #### Trudi MATUTE UMICRO #### [facility] [address] [place] [address] Dr. Nini Bliss UR MICRO IND INDICATED Normal The [facility] Comment on above: Performed By: #### NATHANAEL ROJASICRO #### [facility] [address] [place] [address] Dr. Nini Bliss Urobilinogen Qn (U) 0.2 {Michelle'U}/dL Normal 0.2 - 1.0 [facility] Comment on above: Performed By: #### Trudi MATUTE ICRO #### [facility] [address] [place] [address] Dr. Nini Bliss INFLUENZA A AND B AGon 09-02 INFLUENZA A AG Positive Abnormal NEGATIVE SEE COMMENT [facility] Comment on above: Performed By: #### I NFLUAB #### [facility] [address] [place] [address] Dr. Nini Bliss INFLUENZA B AG Negative Normal NEGATIVE SEE COMMENT [facility] Comment on above: Performed By: #### I NFLUAB #### [facility] [address] [place] [address] Dr. Nini Bliss URINE MICROSCOPIC ONLYon BACTERIA MODERATE Abnormal NONE SEEN The [facility] Comment on above: Performed By: #### Trudi MATUTE UMICRO #### [facility] [address] [place] [address] Dr. Nini Bliss Bacteria identified Cx Nom (U) INDICATED Normal The [facility] Comment on above: Performed By: #### E JUJU, UMICRO #### [facility] [address] [place] [address] Dr. Nini Bliss CAST NONE SEEN Normal NONE SEEN The [facility] Comment on above: Performed By: #### E JUJU, UMICRO #### [facility] [address] [place] [address] Dr. Nini Bliss Crystals LM Nom (Urine sed) NONE SEEN Normal NONE SEEN [facility] Comment on above: Performed By: #### Trudi MATUTE UMICRO #### [facility] [address] [place] [address] Dr. Nini Bliss Epithelial cells LM Ql (Urine sed) FEW Abnormal NONE SEEN /RARE The [facility] Comment on above: Performed By: #### Trudi MATUTE UMICRO #### [facility] [address] [place] [address] Dr. Nini Bliss MUCOUS NONE SEEN Normal NONE SEEN The [facility] Comment on above: Performed By: #### Trudi MATUTE UMICRO #### [facility] [address] [place] [address] Dr. Nini Bliss RBC 75-100 Abnormal 0-2 The [facility] Comment on above: Performed By: #### Trudi MATUTE UMICRO #### [facility] [address] [place] [address] Dr. Nini Bliss WBC 0-2 Abnormal NONE SEEN The [facility] Comment on above: Performed By: #### Trudi MATUTE UMICRO #### [facility] [address] [place] [address] Dr. Nini Bliss US BAR DOP LEG [...] POPPY ROBERT Date: 2022-09-02 07:57 Normal The [facility] XR HIP RT 2 3V W PELVISon [...] by: DEV MARTINEZ Date: 2022-09-01 22:33 Normal [facility] COVID Quick Testingon 2021 Result Negative [facility] Other Vital Signs Date Time Vital Sign Value Performing Clinician Facility 09-15-2023 09:28-0500 Body height 166.4 cm Shakira Lindene V, PA [facility] 09-15-2023 09:28-0500 Body mass index (BMI) [Ratio] 34.25 kg/m2 Shakira Shendge V, PA Work Phone: [facility] 09-15-2023 09:28-0500 Body weight 94.8 kg Shakira Shendge V, PA Work Phone: [facility] 09-15-2023 09:28-0500 Diastolic blood pressure 60 mm[Hg] Shakira Shendge V, PA Work Phone: [facility] 09-15-2023 09:28-0500 Respiratory rate 18 /min Shakira Shendge V, PA Work Phone: [facility] 09-15-2023 09:28-0500 Systolic blood pressure 106 mm[Hg] Shakira Shendge V, PA Work Phone: [facility] 09-02-2021 14:00-0500 Body height 168.91 cm Dary Portillo Other [facility] Other 09-02-2021 14:00-0500 Body mass index (BMI) [Ratio] 30.2 kg/m2 Dary Portillo Other [facility] Other 09-02-2021 14:00-0500 Body temperature 97.1 [degF] Dary Portillo Other [facility] Other 09-02-2021 14:00-0500 Body weight 86.18 kg Dary Portillo Other [facility] Other 09-02-2021 14:00-0500 Respiratory rate 18 /min Dary Portillo Other [facility] Other 09-02-2021 14:00-0500 SaO2% (BldA) [Mass fraction] 99 % Dary Portillo Other [facility] Other Encounters Encounter Date Encounter Type Care Provider Facility Start: 09-18-2023 ambulatory [facility] Start: 09-15-2023 End: 09-15-2023 ambulatory SHAKIRA ESTRADA [facility] Start: 09-15-2023 End: 09-15-2023 Office outpatient visit 15 minutes Shakira MARIE Work Phone: [facility] Comment on above: Fibromyalgia (Primar y Dx) Start: 08-15-2023 End: 08-16-2023 ambulatory BETI CARVER [facility] Start: 09-02-2022 End: 09-03-[address] ALINE MORELAND Facility:[facility] Start: 09-01-2022 End: 09-02-[address] DOCTOR MARR Facility:[facility] Start: 08-30-2022 (URG) Urgent Care Visit Rona burns [facility] Start: 08-30-2022 End: 08-30-2022 ambulatory Roan Collado Other [facility] Other Start: 09-02-2021 End: 09-02-2021 ambulatory Dary Wolfeault Other [facility] Other Start: 09-02-2021 Office outpatient vi sit [...] AM EDT Office Visit [facility] [address] [place] [phone] Shakira Estrada PA [address] [place] [phone] [facility] Start: 12-21-2023 End: 12-21-2023 Patient encounter procedure 12/21/2023 7:40 AM EDT Office Visit [facility] [address] [place] [address] [place] [id number] Beti Carver, INFANTRY UNIT LEADER-TOOL TURRET LATHE SET UP OPERATOR [address] [facility] [address], [place] [address] [facility] Start: 10-07-2023 Depression Screening Depression Screening [facility] Start: 04-24-2023 Influenza vaccination Influenza Vaccine [facility] Start: 04-12-2017 DTaP,Tdap and Td Vaccines (7 - Tdap) DTaP,Tdap and Td Vaccines (7 - Tdap) [facility] Start: 2015 Screening for malignant neoplasm of cervix Pap Smear [facility] Start: 2012 Adult BMI Follow Up Plan Adult BMI Follow Up Plan [facility] Start: 1994 Tobacco Counseling Tobacco Counseling [facility] Payers Date Payer Category Payer Private Health Insurance [facility] [employer] [id number] 2022-Present [phone] [address] [address] [place] [address] [id number] 1994 Unknown [id number] 1994 Unknown [id number] 1994 Unknown [id number] 1994 Unknown [id number] 1994 Unknown [id number] 1959 Unknown [id number] Unknown [id number] Social History Date Type Detail Facility Start: 10-07-2022 End: 01-21-2023 Sex Assigned At [facility] Start: 01-14-2023 [facility] History of tobacco use Cigarette Smoker P [facility] Start: 01-14-2023 Tobacco use and exposure Smoke less tobacco non-user [facility] Start: 09-15-2023 Alcohol intake Lifetime non-d minerva (finding) [facility] Start: 10-07-2022 End: 01-21-2023 History of Social function [facility] Do you belong to any clubs or organizations such as alevism groups, unions, fraternal or athletic groups, or school groups? No [facility] Are you now , , , , never or living with a partner? [facility] How often to you hav e a drink containing alcohol? Never [facility] How many standard dr inks containing alcohol do you have on a typical day? Patient does not drink [facility] How hard is it for y ou to pay for the very basics like food, housing, medical care, and heating Not very hard [facility] Start: 11-26-2021 Education 21 [facility] Start: 1995 Sex Assigned At Female P [facility] Start: 08-03-2021 Gender identity Identifies as female gender (finding) [facility] History of Present illness Narrative 09-15-2023 FRANK Sanabria - 09/15/2023 9:30 AM EST Note Date & Type Note Facility 09-15-2023 History of Present illness Narrative Images from the original note were not included. [address] [phone] Date of Service: 09/15/2023 Thank you for the referral to evaluate Alexey Ryan for widespread pain This is a new patient and is seen at the request of SEAN ZUÑIGA. Chief Complaint: Widespread pain SUBJECTIVE: Alexey Ryan is a 27 y.o. female who [...] been more restful Visit history from 03/16/2023 Alexey Ryan is a 27 y.o. female who [...] Performed by Emmanuel Spencer MD PhD at [facility] reviewed. Social History Tobacco Use Smoking [...] Christopher Archer on 01/13/2023 8:39 AM ASSESSMENT/PLAN: Alexey Ryan is a 27 y.o. female patient presents for evaluation of widespread pain Patient established care with pr on 02/11/2023 ICD-10-CM 1. Fibromyalgia M79.7 Orders [...] or corrected. Thank you for your understanding. [facility] Shakira Estrada PA-C [address] [place] [address] Office [phone] FRANK Sanabria 09/15/23 1031 documented in this encounter [facility] Evaluation note 08-30-2022 Note Date & Type Note Facility 08-30-2022 Evaluation note Encounter Date Diagnosis Assessment Notes Aug, Patient left without being seen (ICD-10 - Z53.21) [facility] Other Evaluation note 09-02-2021 Note Date & [...] Patient care instructions given in writting by [facility] document. [facility] Other History general Narrative - Reported 07-24-2021 Note Date & Type Note Facility 07-24-2021 History general N arrative - Reported Type Surgical History tonsillectomy and adenoidectomy 07/2021 [facility] Other Evaluation note Note Date & Type [...] Specialty Diagnoses / Procedures Referred By Osman t Referred To Contact Rehabilitation Diagnoses [place] [address] [place] [address] [address] [place] [address] [facility] [address] [place] [address] Referral ID Status Reason Start Date Expiration Date Visits Requested Visits Authorized [id number] Authorized Specialty Services Required 09/15/2023 09/14/2024 1 1 Specialty Diagnoses / Procedures Referred By Osman t Referred To Contact Diagnoses Fibromyalgia Shakira Estrada PA [address] [facility] [address] [place] [address] Referral ID Status Reason Start Date Expiration Date V isits Requested Visits Authorized [id number] Pending Review 09/15/2023 09/14/2024 1 1 Additional Source Comments REASON FOR VISIT (unrecogniz ed section and content) #17 SILVER VAN, EXPOSURE, LO SS OF TASTE, H/A, RUNNY NOSE, COVID Provider VisitSORE THROAT, CONGESTION, COUGH INFORMATION SOURCE (unrecogn ized section and content) DATE CREATED AUTHOR 09/03/2022 [facility] DATE CREATED AUTHOR AUTHOR'S ORGANIZ ATION 09/18/2023 [facility] DATE CREATED AUTHOR AUTHOR'S ORGANIZ ATION 09/27/2023 [facility] Care Teams (unrecognized sec tion and content) Integrated Circuit Layout Designer Relationship Specialty Start Date End Date Beti Carver, INFANTRY UNIT LEADER-TOOL TURRET LATHE SET UP OPERATOR [address], Narinder Burns [place], [place] [id number] PCP - General Family Medicine 11/27/21 FOR [...] BE BASED ON THE PRIMARY CLINICAL RECORDS. [facility]. provides no warranty or guarantee of the accuracy or completeness of information in this document.
--- NOTE | 2023-10-02 03:17 | ECG_ITS ---
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
--- NOTE | 2023-10-02 03:17 | XR_ITS ---
The [address] [address] Patient Name: PERNELL VAN MRN: [id number] date: 1995 Sex: F Assigned Patient Location: ER Current Patient Location: ER Accession/Order Number: [id number] Exam Date: 10/02/2023 03:32 Report Date: 10/02/2023 03:46 At the request of: VERONIKA RAMIREZ Procedure: XR chest 1V CLINICAL HISTORY: Chest pain. FINDINGS: Portable AP view of the chest obtained. Cardiomediastinal silhouette is normal. Lungs volumes are low, no evidence of infiltrate, suspicious nodule, or mass. No evidence of significant pleural fluid on this portable projection. No acute bony abnormality. XR/XR chest 1V IMPRESSION: No acute abnormality. Lung volumes presumably due to obesity. Electronically authenticated by: MONISHA MIDDLETON Date: 10/02/2023 03:46
[2023-10-02 03:36] LABS: Basophils Percent Auto 0.4 % (0.2-2.0); Eosinophils Absolute Auto 0.3 10^3/uL (0.0-0.7); Eosinophils Percent Auto 3.5 % (0.9-7.0); Hematocrit 34.7 % (36.0-48.0); Hemoglobin 11.3 g/dL (12.0-16.0); Immature Granulocytes Abs Auto 0.11 10^3/uL (0.00-0.03); Immature Granulocytes Pct Auto 1.3 % (0.0-0.5); Lymphocytes Absolute Auto 1.5 10^3/uL (1.2-3.8); Lymphocytes Percent Auto 17.9 % (20.5-60.0); Mean Corpuscular HGB Conc 32.6 g/dL (29.9-35.2); Mean Corpuscular Hemoglobin 27.2 pg (26.7-34.0); Mean Corpuscular Volume 83.4 fL (81.0-99.0); Mean Platelet Volume 10.3 fL (9.5-13.5); Monocytes Absolute Auto 0.8 10^3/uL (0.3-0.8); Monocytes Percent Auto 9.5 % (1.7-12.0); Neutrophils Absolute Auto 5.5 10^3/uL (1.4-6.5); Neutrophils Percent Auto 67.4 % (43.0-75.0); Platelet Count 189 10^3/uL (150-450); Red Blood Count 4.16 10^6/uL (4.20-5.40); Red Cell Distribution Width 14.2 % (11.0-15.0); White Blood Count 8.2 10^3/uL (4.0-11.0)
--- NOTE | 2023-10-02 03:36 | ED_ITS ---
HPI - Chest Pain General Chief Complaint: Chest Pain Stated Complaint: dizziness chest pain Time Seen by Provider: 10/02/23 03:01 Source: patient Mode of arrival: walk-in Limitations: no limitations History of Present Illness HPI narrative: 28-year-old female presents for chest pain. It started an hour and a half ago when she was at work. It is worse when she is up moving around and it is better when she is not. No trauma or unusual activity. No fever cough or back pain. She is , 6 months, and has no vaginal bleeding or abdominal pain. No personal history of heart disease or pulmonary embolism or DVT. Related Data Home Medications Medication Instructions Recorded Confirmed metronidazole 500 mg tablet mg 10/02/23 vitamin with calcium tab 10/02/23 no.72-iron 27 mg-folic acid 1 mg tablet (WesTab Plus) Allergies Allergy/AdvReac Type Severity Reaction Status Date / Time amoxicillin Allergy Verified 10/02/23 03:11 cefaclor [From Ceclor] Allergy Verified 10/02/23 03:11 Review of Systems ROS0 Narrative A ten point review of systems is negative except as noted above. PFSH PFS Social History (System 06/16/23 @ 08:47 by Chayo Jaimes) Smoking status: Former smoker Exam Narrative Exam Narrative: Nurses note and vital signs reviewed and patient is not hypoxic. General: The patient appears well and in no apparent distress. Patient is resting comfortably on cart. Skin: Warm, dry, no pallor noted. There is no rash noted. Head: Normocephalic, atraumatic Eye: Normal conjunctiva, no drainage Ears, Nose, Mouth, and Throat: oral mucosa is moist. Nares patent. Cardiovascular: Regular Rate and Rhythm Respiratory: Patient is in no distress, no accessory muscle use, lungs are clear to auscultation, no wheezing, rales or rhonchi Back: non-tender GI: Gravid, nontender Musculoskeletal: The patient has no evidence of calf tenderness, no pitting edema, symmetrical pulses noted bilaterally Neurological: A&O, normal speech Psychiatric: Cooperative Constitutional Vital Signs, click to edit/add: Last Vital Signs Temp 98.4 F 10/02/23 03:04 Pulse 81 10/02/23 04:50 Resp 20 10/02/23 04:50 BP 112/70 10/02/23 03:08 Pulse Ox 100 10/02/23 03:07 O2 Del Method Room Air 10/02/23 03:04 Course Vital Signs Vital signs: Vital Signs Temperature 98.4 F 10/02/23 03:04 Pulse Rate 88 10/02/23 03:04 Respiratory Rate 16 10/02/23 03:04 Blood Pressure 112/70 10/02/23 03:04 Pulse Oximetry 99 10/02/23 03:04 Oxygen Delivery Method Room Air 10/02/23 03:04 Temperature 98.4 F 10/02/23 03:04 Pulse Rate 81 10/02/23 04:50 Respiratory Rate 20 10/02/23 04:50 Blood Pressure 112/70 10/02/23 03:08 Pulse Oximetry 100 10/02/23 03:07 Oxygen Delivery Method Room Air 10/02/23 03:04 MDM - Chest Pain MDM Narrative Medical decision making narrative: Workup including CTA is negative and she is able to be discharged home. Findings are discussed with the patient and her family Differential Diagnosis Differential diagnosis: Likely pneumothorax, unstable angina pectoris, atypical chest pain, st elevation myocardial infarction, costochondritis, chest pain and other (Pulmonary embolism) Lab Data Attestation: I reviewed the patient's lab results. Labs: Lab Results 10/02/23 Range/Units 03:25 WBC 8.2 (4.0-11.0) 10^3/uL RBC 4.16 L (4.20-5.40) 10^6/uL Hgb 11.3 L (12.0-16.0) g/dL Hct 34.7 L (36.0-48.0) % MCV 83.4 (81.0-99.0) fL MCH 27.2 (26.7-34.0) pg MCHC 32.6 (29.9-35.2) g/dL RDW 14.2 (11.0-15.0) % Plt Count 189 (150-450) 10^3/uL MPV 10.3 (9.5-13.5) fL Neut % (Auto) 67.4 (43.0-75.0) % Lymph % (Auto) 17.9 L (20.5-60.0) % [place] % (Auto) 9.5 (1.7-12.0) % Eos % (Auto) 3.5 (0.9-7.0) % Baso % (Auto) 0.4 (0.2-2.0) % Neut # (Auto) 5.5 (1.4-6.5) 10^3/uL Lymph # (Auto) 1.5 (1.2-3.8) 10^3/uL [place] # (Auto) 0.8 (0.3-0.8) 10^3/uL Eos # (Auto) 0.3 (0.0-0.7) 10^3/uL Baso # (Auto) 0.0 (0.0-0.1) 10^3/uL Abs Immat Gran (auto) 0.11 H (0.00-0.03) 10^3/uL Imm/Tot Granulo (auto) 1.3 H (0.0-0.5) % Sodium 139 (136-145) mmol/L Potassium 3.9 (3.5-5.1) mmol/L Chloride 104 (98-107) mmol/L Carbon Dioxide 27.0 (21.0-32.0) mmol/L Anion Gap 11.9 BUN 7.0 (7.0-18.0) mg/dL Creatinine 0.58 (0.55-1.02) mg/dL Est GFR ( Amer) >60 (>=60) Est GFR (Non-Af Amer) >60 (>=60) BUN/Creatinine Ratio 12.1 Glucose 90 (74-106) mg/dL Calcium 8.8 (8.5-10.1) mg/dL Troponin I High Sens <4.0 L (4.0-51.3) pg/mL Imaging Data CT scan - chest: Radiologist's impression: ITS Impressions Chest X-Ray 10/02/23 03:17 IMPRESSION: No acute abnormality. Lung volumes presumably due to obesity. Electronically authenticated by: MONISHA MIDDLETON Date: 10/02/2023 03:46 Chest CTA 10/02/23 03:53 IMPRESSION: 1. No evidence of pulmonary embolism or acute thoracic abnormality. 2. Cardiomegaly and low lung volumes. Electronically authenticated by: MONISHA MIDDLETON Date: 10/02/2023 05:04 ECG Data Attestation: I personally reviewed and interpreted this ECG as follows: (EKG on my interpretation shows normal sinus rhythm with a rate of 77.) Heart Score History: Slightly/Non-Suspicious ECG: Normal Age: <45 years Risk Factors: 1 or 2 Risk Factors Troponin: <Normal Limit Total Heart Score Recommendations & Risks:: 1 Discharge Plan Discharge Chief Complaint: Chest Pain Clinical Impression: Chest pain Patient Disposition: Home, Self-Care Time of Disposition Decision: 05:41 Condition: Good Mode of Transportation: Private Vehicle Prescriptions / Home Meds: No Action metronidazole 500 mg tablet WesTab Plus 27 mg iron- 1 mg tablet Instructions: Chest Pain (ED) Stand Alone Forms: Portal Instructions Referrals: Physician,Non-Staff, MD [Primary Care Provider] - 1 week
--- NOTE | 2023-10-02 03:47 | PC.NURSE ---
Pt. presents to ER with chest pain She states that it started around 1:15 this morning at work Pt. is almost 6 months Pt. states this is her second and has not had any complications thus far Bedside Doppler used to obtained heart tones at a rate between 155-160 is at bedside IV, labs and EKG were obtained Pt. sitting comfortably in bed with no further needs at this time Pt. and updated on plan of care.
--- NOTE | 2023-10-02 03:53 | CT_ITS ---
The [address] [address] Patient Name: PERNELL VAN MRN: [id number] date: 1995 Sex: F Assigned Patient Location: ER Current Patient Location: ER Accession/Order Number: [id number] Exam Date: 10/02/2023 04:20 Report Date: 10/02/2023 05:04 At the request of: VERONIKA RAMIREZ Procedure: CT angio chest EXAM: CT angio chest HISTORY: Chest pain, , rule out PE. COMPARISON: Chest CT 08/05/2021. TECHNIQUE: CTA chest with IV contrast. FINDINGS: There is adequate opacification of the pulmonary arteries. No filling defects. No axillary or mediastinal thoracic adenopathy. Heart is enlarged. Aorta is normal caliber. Lung volumes are low. No consolidation or effusion. Central airways are patent. No acute findings in the upper abdomen to the extent of limited visualization. CT/CT angio chest IMPRESSION: 1. No evidence of pulmonary embolism or acute thoracic abnormality. 2. Cardiomegaly and low lung volumes. Electronically authenticated by: MONISHA MIDDLETON Date: 10/02/2023 05:04
[2023-10-02 04:02] LABS: Anion Gap 11.9; BUN Creatinine Ratio 12.1; Calcium 8.8 mg/dL (8.5-10.1); Chloride 104 mmol/L (98-107); Estimated GFR (African America >60 (>=60); Estimated GFR (Non-African Ame >60 (>=60); Glucose 90 mg/dL (74-106); Potassium 3.9 mmol/L (3.5-5.1); Sodium 139 mmol/L (136-145); Troponin I High Sensitivity <4.0 pg/mL (4.0-51.3)
--- NOTE | 2023-10-02 05:56 | PC.NURSE ---
Pt. given discharge instructions Pt. and pt. understood and had no further questions Pt. wheeled out in wheelchair by to ER exit
== END 2023-10-02 05:56 | disposition home or self-care (01) ==
PROVIDERS: Emergency Provider Emergency Medicine
DX: O26.892 Other specified pregnancy related conditions, second trimester (principal); R07.9 Chest pain, unspecified; Z87.891 Personal history of nicotine dependence; Z3A.00 Weeks of gestation of pregnancy not specified
CPT/HCPCS: 36415; 71045; 71275; 80048; 84484; 85025; 93005; 99285; Q9967

== ENCOUNTER 2023-10-09 09:01 | Outpatient (OUT) | payer OTHER, SELFPAY ==
--- OUTSIDE RECORDS SUMMARY | 2023-10-09 09:16 | XMS_ITS | CCD ---
Author Name Unknown Address [address] [place] [address] Organization [facility] Care Team Providers Care Dredgemaster Name Role Phone LindseyDary Unavailable [facility], DR MONTANEZ Primary Care Unavailable MARKER, DR MIRELES Admitting Unavailable MARKER, DR MIRELES Attending Unavailable GRECHNY, FRANK MOORE Consulting Unavailable MARKER, DR MIRELES Consulting Unavailable KLIPPERDEV Consulting Unavailable MARKER, DR MIRELES Admitting Unavailable MARKER, DR MIRELES Attending [facility]available [facility] Primary Care Unavailable ZIEBER, [...] sources) Amoxicillin; Translations: [Amoxicillin] Drug Allergy 07-24-2021 [facility] Repository (3 sources) Cefaclor; Translations: [Ceclor] Drug Allergy [facility] Repository (3 sources) Cefaclor; Translations: [CEFACLOR] Drug Allergy 07-24-2021 [facility] Medications Current Medications Medication Drug Class(es) [...] SERUM SEE COMMENTS 08/18/2023 01:57 PM Normal [facility] Comment on above: Result Comment: NOTE Test [...] repeat testing Initial testing Physician Phone Number [phone] GENERAL TEST INFORMATION See Note This screening [...] developed and its performance characteristics determined by [facility] in a manner consistent with CLIA requirements. This test has not been cleared or approved by the U.S. Food and Drug Administration. Test Performed by: [facility] [address] [place] [address] Tobacco Curer: Carson Delcid M.D. Ph.D.; CLIA# [id number] Performed By: #### 4 [id number] #### [facility] ([id number]) [address] [place] [address], [place] [address] CULTURE URINEon 09-02-2022 CULTURE URINE Culture Observations: MODERATE GROWTH OF MIXED GENITAL NAVEED. NO POTENTIAL PATHOGENS SEEN. Normal [facility] Comment on above: Performed By: #### U RCX #### [facility] [address] [place] [address] Dr. Nini Bliss D-DIMERon 09-02-2022 D-DIMER 0.68 mg/L FEU Critically high <=0.59 [facility] Comment on above: Performed By: #### D DIM #### [facility] [address] [place] [address] Dr. Nini Bliss D-DIMER COMMENTS SEE BELOW Normal [facility] Comment on above: Result Comment: Incr [...] hospitalization. Performed By: #### D DIM #### [facility] [address] [place] [address] Dr. Nini Bliss ER URINE PROFILEon 3 Bilirubin Ql (U) Negative Normal NEGATIVE [facility] Comment on above: Performed By: #### Trudi MATUTE UMICRO #### [facility] [address] [place] [address] Dr. Nini Bliss Clarity (U) CLEAR Normal CLEAR [facility] Comment on above: Performed By: #### Trudi MATUTE UMICRO #### [facility] [address] [place] [address] Dr. Nini Bliss Color (U) YELLOW Normal YELLOW [facility] Comment on above: Performed By: #### Trudi MATUTE UMICRO #### [facility] [address] [place] [address] Dr. Nini CACERES A micrscopic examination will be performed if indicated. Normal [facility] Comment on above: Performed By: #### Trudi MATUTE UMICRO #### [facility] [address] [place] [address] Dr. Nini Bliss Glucose Ql (U) Negative Normal NEGATIVE [facility] Comment on above: Performed By: #### Trudi MATUTE UMICRO #### [facility] [address] [place] [address] Dr. Nini Bliss Hemoglobin Ql (U) LARGE Abnormal NEGATIVE [facility] Comment on above: Performed By: #### Trudi MATUTE UMICRO #### [facility] [address] [place] [address] Dr. Nini Bliss Ketones Ql (U) Negative Normal NEGATIVE [facility] Comment on above: Performed By: #### Trudi MATUTE UMICRO #### [facility] [address] [place] [address] Dr. Nini Bliss LEUKOCYTES TRACE Abnormal NEGATIVE [facility] Comment on above: Performed By: #### Trudi MATUTE UMICRO #### [facility] [address] [place] [address] Dr. Nini Bliss Nitrite Ql (U) Negative Normal NEGATIVE [facility] Comment on above: Performed By: #### Trudi MATUTE UMICRO #### [facility] [address] [place] [address] Dr. Nini Bliss pH (U) 5.0 [pH] Normal 5-9 [facility] Comment on above: Performed By: #### NATHANAEL ROJASICRO #### [facility] [address] [place] [address] Dr. Nini Bliss Protein (U) [Mass/Vol] 100 mg/dL Abnormal NEGATIVE/ TRACE [facility] Comment on above: Performed By: #### Trudi MATUTE UMICRO #### [facility] [address] [place] [address] Dr. Nini Bliss SPEC GRAVITY 1.025 Normal 1.005-<=1.025 [facility] Comment on above: Performed By: #### Trudi MATUTE UMICRO #### [facility] [address] [place] [address] Dr. Nini Bliss UR MICRO IND INDICATED Normal [facility] Comment on above: Performed By: #### NATAHNAEL ROJASICRO #### [facility] [address] [place] [address] Dr. Nini Bliss Urobilinogen Qn (U) 0.2 {Michelle'U}/dL Normal 0.2 - 1.0 [facility] Comment on above: Performed By: #### Trudi MATUTE ICRO #### [facility] [address] [place] [address] Dr. Nini Bliss INFLUENZA A AND B AGon 09-02 INFLUENZA A AG Positive Abnormal NEGATIVE SEE COMMENT [facility] Comment on above: Performed By: #### I NFLUAB #### [facility] [address] [place] [address] Dr. Nini Bliss INFLUENZA B AG Negative Normal NEGATIVE SEE COMMENT [facility] Comment on above: Performed By: #### I NFLUAB #### [facility] [address] [place] [address] Dr. Nini Bliss URINE MICROSCOPIC ONLYon BACTERIA MODERATE Abnormal NONE SEEN The [facility] Comment on above: Performed By: #### Trudi MATUTE UMICRO #### [facility] [address] [place] [address] Dr. Nini Bliss Bacteria identified Cx Nom (U) INDICATED Normal [facility] Comment on above: Performed By: #### E JUJU, UMICRO #### [facility] [address] [place] [address] Dr. Nini Bliss CAST NONE SEEN Normal NONE SEEN The [facility] Comment on above: Performed By: #### E JUJU, UMICRO #### [facility] [address] [place] [address] Dr. Nini Bliss Crystals LM Nom (Urine sed) NONE SEEN Normal NONE SEEN [facility] Comment on above: Performed By: #### Trudi MATUTE UMICRO #### [facility] [address] [place] [address] Dr. Nini Bliss Epithelial cells LM Ql (Urine sed) FEW Abnormal NONE SEEN /RARE [facility] Comment on above: Performed By: #### Trudi MATUTE UMICRO #### [facility] [address] [place] [address] Dr. Nini Bliss MUCOUS NONE SEEN Normal NONE SEEN The [facility] Comment on above: Performed By: #### Trudi MATUTE UMICRO #### [facility] [address] [place] [address] Dr. Nini Bliss RBC 75-100 Abnormal 0-2 [facility] Comment on above: Performed By: #### Trudi MATUTE UMICRO #### [facility] [address] [place] [address] Dr. Nini Bliss WBC 0-2 Abnormal NONE SEEN The [facility] Comment on above: Performed By: #### Trudi MATUTE UMICRO #### [facility] [address] [place] [address] Dr. Nini Bliss US BAR DOP LEG [...] POPPY ROBERT Date: 2022-09-02 07:57 Normal [facility] XR HIP RT 2 3V W PELVISon [...] by: DEV MARTINEZ Date: 2022-09-01 22:33 Normal [facility] COVID Quick Testingon 2021 Result Negative [employer] [facility] Other Vital Signs Date Time Vital Sign Value Performing Clinician Facility 09-15-2023 09:28-0500 Body height 166.4 cm Shakira Lindene V[facility] 09-15-2023 09:28-0500 Body mass index (BMI) [Ratio] 34.25 kg/m2 Shakira Shendge V, PA Work Phone: [facility] [facility] 09-15-2023 09:28-0500 Body weight 94.8 kg Shakira Shendge V, PA Work Phone: [facility] 09-15-2023 09:28-0500 Diastolic blood pressure 60 mm[Hg] Shakira Shendge V, PA Work Phone: [facility] 09-15-2023 09:28-0500 Respiratory rate 18 /min Shakira Shendge V, PA Work Phone: [facility] 09-15-2023 09:28-0500 Systolic blood pressure 106 mm[Hg] Shakira Shendge V, PA Work Phone: [facility] 09-02-2021 14:00-0500 Body height 168.91 cm Dary Portillo Other [employer] Other 09-02-2021 14:00-0500 Body mass index (BMI) [Ratio] 30.2 kg/m2 Dary Portillo Other [employer] Other 09-02-2021 14:00-0500 Body temperature 97.1 [degF] Dary Portillo Other [employer] Other 09-02-2021 14:00-0500 Body weight 86.18 kg Dary Portillo Other [employer] Other 09-02-2021 14:00-0500 Respiratory rate 18 /min Dary Portillo Other [employer] Other 09-02-2021 14:00-0500 SaO2% (BldA) [Mass fraction] 99 % Dary Portillo Other [employer] Other Encounters Encounter Date Encounter Type Care Provider Facility Start: 09-18-2023 [facility] Start: 09-15-2023 End: 09-15-2023 ambulatory SHAKIRA ESTRADA [facility] Start: 09-15-2023 End: 09-15-2023 Office outpatient visit 15 minutes Shakira MARIE Work Phone: [facility] Comment on above: Fibromyalgia (Primar y Dx) Start: 08-15-2023 End: 08-16-2023 ambulatory BETI CARVER [facility] Start: 09-02-2022 End: 09-03-[address] ALINE MORELAND Facility:[facility] Start: 09-01-2022 End: 09-02-[address] DOCTOR MARR Facility:[facility] Start: 08-30-2022 (URG) Urgent Care Visit Rona burns [facility] Start: 08-30-2022 End: 08-30-2022 ambulatory Rona Collado Other [employer] Other Start: 09-02-2021 End: 09-02-2021 ambulatory Dary Wolfeault Other [employer] Other Start: 09-02-2021 Office outpatient vi sit [...] AM EDT Office Visit [facility] [address] [place] [phone] Shakira Estrada PA [address] [place] [phone] [facility] Start: 12-21-2023 End: 12-21-2023 Patient encounter procedure 12/21/2023 7:40 AM EDT Office Visit [facility] [address] [place] [address] [place] [phone] Beti Carver, MAIL DISTRIBUTOR-MUCK OPERATOR [address] [facility] [address], [place] [address] [facility] Start: 10-07-2023 Depression Screening Depression Screening [facility] Start: 04-24-2023 Influenza vaccination Influenza Vaccine [facility] Start: 04-12-2017 DTaP,Tdap and Td Vaccines (7 - Tdap) DTaP,Tdap and Td Vaccines (7 - Tdap) [facility] Start: 2015 Screening for malignant neoplasm of cervix Pap Smear [facility] Start: 2012 Adult BMI Follow Up Plan Adult BMI Follow Up Plan [facility] Start: 1994 Tobacco Counseling Tobacco Counseling [facility] tem Payers Date Payer Category Payer Private Health Insurance [facility] [employer] [id number] 2022-Present [phone] [address] [address] [place] [address] [id number] 1994 Unknown [id number] 1994 Unknown [id number] 1994 Unknown [id number] 1994 Unknown [id number] 1994 Unknown [id number] 1959 Unknown [id number] Unknown [id number] Social History Date Type Detail Facility Start: 10-07-2022 End: 01-21-2023 Sex Assigned At [facility] Start: 01-14-2023 [facility] History of tobacco use Cigarette Smoker P [facility] Start: 01-14-2023 Tobacco use and exposure Smoke less tobacco non-user [facility] Start: 09-15-2023 Alcohol intake Lifetime non-d minerva (finding) [facility] Start: 10-07-2022 End: 01-21-2023 History of Social function [facility] Do you belong to any clubs or organizations such as anabaptism groups, unions, fraternal or athletic groups, or school groups? No [facility] Are you now , , , , never or living with a partner? [facility] How often to you hav e a drink containing alcohol? Never [facility] How many standard dr inks containing alcohol do you have on a typical day? Patient does not drink [facility] How hard is it for y ou to pay for the very basics like food, housing, medical care, and heating Not very hard [facility] Start: 11-26-2021 Education 21 [facility] Start: 1994 Sex Assigned At Female P [facility] Start: 08-03-2021 Gender identity Identifies as female gender (finding) [facility] History of Present illness Narrative 09-15-2023 FRANK Sanabria - 09/15/2023 9:30 AM EST Note Date & Type Note Facility 09-15-2023 History of Present illness Narrative Images from the original note were not included. [address] [phone] Date of Service: 09/15/2023 Thank you for [...] Performed by Emmanuel Spencer MD PhD at [facility] reviewed. Social History Tobacco Use Smoking [...] of widespread pain Patient established care with [place] on 02/11/2023 ICD-10-CM 1. Fibromyalgia M79.7 Orders [...] or corrected. Thank you for your understanding. [facility] Shakira Estrada PA-C [address] [place] [address] Office [phone] FRANK Sanabria 09/15/23 1031 documented in this encounter [facility] Evaluation note 08-30-2022 Note Date & Type Note Facility 08-30-2022 Evaluation note Encounter Date Diagnosis Assessment Notes Aug, Patient left without being seen (ICD-10 - Z53.21) [employer] [facility] Other Evaluation note 09-02-2021 Note Date & [...] Patient care instructions given in writting by [facility] Care At Home document. [employer] Other History general Narrative - Reported 07-24-2021 Note Date & Type Note Facility 07-24-2021 History general N arrative - Reported Type Surgical History tonsillectomy and adenoidectomy 07/2021 [employer] [facility] Other Evaluation note Note Date & Type [...] Contact Rehabilitation Diagnoses [place] [address] [place] [address] [address] [place] [address] [facility] [address] [place] [address] Referral ID Status Reason Start Date Expiration Date Visits Requested Visits Authorized [id number] Authorized Specialty Services Required 09/15/2023 09/14/2024 1 1 Specialty Diagnoses / Procedures Referred By Osman t Referred To Contact Diagnoses Fibromyalgia Shakira Estrada PA [address] [facility] [address] [place] [address] Referral ID Status Reason Start Date Expiration Date V isits Requested Visits Authorized [id number] Pending Review 09/15/2023 09/14/2024 1 1 Additional Source Comments REASON FOR VISIT (unrecogniz ed section and content) #17 SILVER VAN, EXPOSURE, LO SS OF TASTE, H/A, RUNNY NOSE, COVID Provider VisitSORE THROAT, CONGESTION, COUGH INFORMATION SOURCE (unrecogn ized section and content) DATE CREATED AUTHOR 09/03/2022 [facility] DATE CREATED AUTHOR AUTHOR'S ORGANIZ ATION 09/18/2023 [facility] DATE CREATED AUTHOR AUTHOR'S ORGANIZ ATION 10/05/2023 [facility] Care Teams (unrecognized sec tion and content) Dredgemaster Relationship Specialty Start Date End Date Beti Carver, MAIL DISTRIBUTOR-MUCK OPERATOR [address], Narinder Burns [place], [place] [id number] PCP - General Family Medicine 11/27/21 FOR [...] BE BASED ON THE PRIMARY CLINICAL RECORDS. [facility], [facility]. provides no warranty or guarantee of the accuracy or completeness of information in this document.
[2023-10-09 10:27] LABS: Basophils Percent Auto 0.3 % (0.2-2.0); Eosinophils Absolute Auto 0.3 10^3/uL (0.0-0.7); Hematocrit 34.9 % (36.0-48.0); Hemoglobin 11.1 g/dL (12.0-16.0); Immature Granulocytes Pct Auto 1.1 % (0.0-0.5); Lymphocytes Absolute Auto 1.5 10^3/uL (1.2-3.8); Lymphocytes Percent Auto 16.1 % (20.5-60.0); Mean Corpuscular HGB Conc 31.8 g/dL (29.9-35.2); Mean Corpuscular Hemoglobin 26.8 pg (26.7-34.0); Mean Corpuscular Volume 84.3 fL (81.0-99.0); Monocytes Absolute Auto 0.6 10^3/uL (0.3-0.8); Monocytes Percent Auto 6.1 % (1.7-12.0); Neutrophils Absolute Auto 6.6 10^3/uL (1.4-6.5); Neutrophils Percent Auto 73.4 % (43.0-75.0); Platelet Count 221 10^3/uL (150-450); Red Blood Count 4.14 10^6/uL (4.20-5.40); Red Cell Distribution Width 14.2 % (11.0-15.0)
[2023-10-09 11:38] LABS: Glucose 1 Hour 141 mg/dL (<130)
== END 2023-10-09 09:02 | disposition home or self-care (01) ==
PROVIDERS: Visit Provider Physician Assistant
DX: Z13.1 Encounter for screening for diabetes mellitus (principal)
CPT/HCPCS: 36415; 82950; 85025

== ENCOUNTER 2023-10-13 08:42 | Outpatient (OUT) | payer OTHER, SELFPAY ==
--- OUTSIDE RECORDS SUMMARY | 2023-10-13 08:47 | XMS_ITS | CCD ---
Author Name Unknown Address [address] [place] [address] Organization [facility] Care Team Providers Care Waiter And Cashier Name Role Phone LindseyDary Unavailable [facility] MONTANEZ Primary Care Unavailable MARKER, DR MIRELES Admitting Unavailable MARKER, DR MIRELES Attending Unavailable GRECHNY, FRANK MOORE Consulting Unavailable MARKER, DR MIRELES Consulting Unavailable KLIPPERDEV Consulting Unavailable MARKER, DR MIRELES Admitting Unavailable MARKER, DR MIERLES Attending [facility] Primary Care Unavailable ZIEBER, DR POPPY Davis Consulting Unavailable MARKER, DR MIRELES Consulting Unavailable ELANBETI YOUNG Consulting Unavailable Rona Collado Unavailable Beti Steele Primary Care Provi amalia SHAKIRA OLVERA Attending Unavailable BETI CARVER Referring Unavailable BETI CARVER Primary Care Unavailable SHAKIRA OLVERA Referring Unavailable BETI CARVER Primary Care Unavailable BETI CARVER Referring Unavailable BETI CRAVER Primary Care Unavailable Allergies Allergy Classification Reported Allergen(s) Allergy Type Date of Onset Reaction(s) Facility (6 sources) Amoxicillin; Translations: [Amoxicillin] Drug Allergy 07-24-2021 [facility] Repository (3 sources) Cefaclor; Translations: [Ceclor] Drug Allergy [facility] Repository (3 sources) Cefaclor; Translations: [CEFACLOR] Drug Allergy 07-24-2021 [facility] Medications Current Medications Medication Drug Class(es) [...] SEE COMMENTS 08/18/2023 01:[address] [facility] Comment on above: Result Comment: NOTE [...] repeat testing Initial testing Physician Phone Number [phone] GENERAL TEST INFORMATION See Note This screening [...] its performance characteristics determined by [facility] in a manner consistent with CLIA requirements. This test has not been cleared or approved by the U.S. Food and Drug Administration. Test Performed by: [facility] [address] [place] [address] Power Transformer Assembler: Carson Delcid M.D. Ph.D.; CLIA# [id number] Performed By: #### 4 [id number] #### [facility] ([id number]) [address] [place] [address], [place] [address] CULTURE URINEon 09-02-2022 CULTURE URINE Culture Observations: MODERATE GROWTH OF MIXED GENITAL NAVEED. NO POTENTIAL PATHOGENS SEEN. Normal [facility] Comment on above: Performed By: #### U RCX #### [facility] [address] [place] [address] Dr. Nini Bliss D-DIMERon 09-02-2022 D-DIMER 0.68 mg/L FEU Critically high <=0.59 [facility] Comment on above: Performed By: #### D DIM #### [facility] [address] [place] [address] Dr. Nini Bliss D-DIMER COMMENTS SEE BELOW Normal [facility] Comment on above: Result Comment: Incr [...] hospitalization. Performed By: #### D DIM #### [facility] [address] [place] [address] Dr. Nini Bliss ER URINE PROFILEon 3 Bilirubin Ql (U) Negative Normal NEGATIVE [facility] Comment on above: Performed By: #### Trudi MATUTE UMICRO #### [facility] [address] [place] [address] Dr. Nini Bliss Clarity (U) CLEAR Normal CLEAR [facility] Comment on above: Performed By: #### Trudi MATUTE UMICRO #### [facility] [address] [place] [address] Dr. Nini Bliss Color (U) YELLOW Normal YELLOW [facility] Comment on above: Performed By: #### Trudi MATUTE UMICRO #### [facility] [address] [place] [address] Dr. Nini CACERES A micrscopic examination will be performed if indicated. Normal [facility] Comment on above: Performed By: #### Trudi MATUTE UMICRO #### [facility] [address] [place] [address] Dr. Nini Bliss Glucose Ql (U) Negative Normal NEGATIVE [facility] Comment on above: Performed By: #### Trudi MATUTE UMICRO #### [facility] [address] [place] [address] Dr. Nini Bliss Hemoglobin Ql (U) LARGE Abnormal NEGATIVE The [facility] Comment on above: Performed By: #### Trudi MATUTE UMICRO #### [facility] [address] [place] [address] Dr. Nini Bliss Ketones Ql (U) Negative Normal NEGATIVE [facility] Comment on above: Performed By: #### Trudi MATUTE UMICRO #### [facility] [address] [place] [address] Dr. Nini Bliss LEUKOCYTES TRACE Abnormal NEGATIVE [facility] Comment on above: Performed By: #### Trudi MATUTE UMICRO #### [facility] [address] [place] [address] Dr. Nini Bliss Nitrite Ql (U) Negative Normal NEGATIVE [facility] Comment on above: Performed By: #### Trudi MATUTE UMICRO #### [facility] [address] [place] [address] Dr. Nini Bliss pH (U) 5.0 [pH] Normal 5-9 [facility] Comment on above: Performed By: #### NATHANAEL ROJASICRO #### [facility] [address] [place] [address] Dr. Nini Bliss Protein (U) [Mass/Vol] 100 mg/dL Abnormal NEGATIVE/ TRACE [facility] Comment on above: Performed By: #### Trudi MATUTE UMICRO #### [facility] [address] [place] [address] Dr. Nini Bliss SPEC GRAVITY 1.025 Normal 1.005-<=1.[address] [facility] Comment on above: Performed By: #### Trudi MATUTE UMICRO #### [facility] [address] [place] [address] Dr. Nini Bliss UR MICRO IND INDICATED Normal [facility] Comment on above: Performed By: #### NATHANAEL ROJASICRO #### [facility] [address] [place] [address] Dr. Nini Bliss Urobilinogen Qn (U) 0.2 {Michelle'U}/dL Normal 0.2 - 1.0 [facility] Comment on above: Performed By: #### Trudi MATUTE ICRO #### [facility] [address] [place] [address] Dr. Nini Bliss INFLUENZA A AND B AGon 09-02 INFLUENZA A AG Positive Abnormal NEGATIVE SEE COMMENT [facility] Comment on above: Performed By: #### I NFLUAB #### [facility] [address] [place] [address] Dr. Nini Bliss INFLUENZA B AG Negative Normal NEGATIVE SEE COMMENT [facility] Comment on above: Performed By: #### I NFLUAB #### [facility] [address] [place] [address] Dr. Nini Bliss URINE MICROSCOPIC ONLYon BACTERIA MODERATE Abnormal NONE SEEN The [facility] Comment on above: Performed By: #### Trudi MATUTE UMICRO #### [facility] [address] [place] [address] Dr. Nini Bliss Bacteria identified Cx Nom (U) INDICATED Normal [facility] Comment on above: Performed By: #### E JUJU, UMICRO #### [facility] [address] [place] [address] Dr. Nini Bliss CAST NONE SEEN Normal NONE SEEN [facility] Comment on above: Performed By: #### E JUJU, UMICRO #### [facility] [address] [place] [address] Dr. Nini Bliss Crystals LM Nom (Urine sed) NONE SEEN Normal NONE SEEN [facility] Comment on above: Performed By: #### Trudi MATUTE UMICRO #### [facility] [address] [place] [address] Dr. Nini Bliss Epithelial cells LM Ql (Urine sed) FEW Abnormal NONE SEEN /RARE [facility] Comment on above: Performed By: #### Trudi MATUTE UMICRO #### [facility] [address] [place] [address] Dr. Nini Bliss MUCOUS NONE SEEN Normal NONE SEEN [facility] Comment on above: Performed By: #### Trudi MATUTE UMICRO #### [facility] [address] [place] [address] Dr. Nini Bliss RBC 75-100 Abnormal 0-2 [facility] Comment on above: Performed By: #### Trudi MATUTE UMICRO #### [facility] [address] [place] [address] Dr. Nini Bliss WBC 0-2 Abnormal NONE SEEN [facility] Comment on above: Performed By: #### Trudi MATUTE UMICRO #### [facility] [address] [place] [address] Dr. Nini Bliss US BAR DOP LEG [...] POPPY ROBERT Date: 2022-09-02 07:57 Normal [facility] XR HIP RT 2 3V W PELVISon [...] by: DEV MARTINEZ Date: 2022-09-01 22:33 Normal [facility] COVID Quick Testingon 2021 Result Negative [facility] Other Vital Signs Date Time Vital Sign Value Performing Clinician Facility 09-15-2023 09:28-0500 Body height 166.4 cm Shakira Lindene V, PA [facility] 09-15-2023 09:28-0500 Body mass index (BMI) [Ratio] 34.25 kg/m2 Shakira Shendge V, PA Work Phone: [facility] 09-15-2023 09:28-0500 Body weight 94.8 kg Shakira Shendge V, PA Work Phone: [facility] 09-15-2023 09:28-0500 Diastolic blood pressure 60 mm[Hg] Shakira Shendge V, PA Work Phone: [facility] 09-15-2023 09:28-0500 Respiratory rate 18 /min Shakira Shendge V, PA Work Phone: [facility] 09-15-2023 09:28-0500 Systolic blood pressure 106 mm[Hg] Shakira Shendge V, PA Work Phone: [facility] 09-02-2021 14:00-0500 Body height 168.91 cm Dary Portillo Other [facility] Other 09-02-2021 14:00-0500 Body mass index (BMI) [Ratio] 30.2 kg/m2 Dary Portillo Other [facility] Other 09-02-2021 14:00-0500 Body temperature 97.1 [degF] Dary Poritllo Other [facility] Other 09-02-2021 14:00-0500 Body weight 86.18 kg Dary Portillo Other [facility] Other 09-02-2021 14:00-0500 Respiratory rate 18 /min Dary Portillo Other [facility] Other 09-02-2021 14:00-0500 SaO2% (BldA) [Mass fraction] 99 % Dary Portillo Other [facility] Other Encounters Encounter Date Encounter Type Care Provider Facility Start: 09-18-2023 ambulatory [facility] Start: 09-15-2023 End: 09-15-2023 ambulatory SHAKIRA ESTRADA [facility] Start: 09-15-2023 End: 09-15-2023 Office outpatient visit 15 minutes Shakira MARIE Work Phone: [facility] Comment on above: Fibromyalgia (Primar y Dx) Start: 08-15-2023 End: 08-16-[address] [facility] Start: 09-02-2022 End: 09-03-[address] ALINE MORELAND Facility:[facility] Start: 09-01-2022 End: 09-02-[address] DOCTOR MARR Facility:[facility] Start: 08-30-2022 (URG) Urgent Care Visit Rona burns [facility] Start: 08-30-2022 End: 08-30-2022 ambulatory Rona Collado Other [facility] Other Start: 09-02-2021 End: 09-02-2021 ambulatory Dary Wolfeault Other [facility] Other Start: 09-02-2021 Office outpatient vi sit [...] AM EDT Office Visit [facility] [address] [place] [phone] Shakira Estrada PA [address] [place] [phone] [facility] Start: 12-21-2023 End: 12-21-2023 Patient encounter procedure 12/21/2023 7:40 AM EDT Office Visit [facility] [address] [place] [address] [place] [id number] Beti Carver, COMMUNICATIONS STATION MANAGER-UNDERWRITER SOLICITATION DIRECTOR [address] [facility] [address], [place] [address] [facility] Start: 10-07-2023 Depression Screening Depression Screening [facility] Start: 04-24-2023 Influenza vaccination Influenza Vaccine [facility] Start: 04-12-2017 DTaP,Tdap and Td Vaccines (7 - Tdap) DTaP,Tdap and Td Vaccines (7 - Tdap) [facility] Start: 2015 Screening for malignant neoplasm of cervix Pap Smear [facility] Start: 2012 Adult BMI Follow Up Plan Adult BMI Follow Up Plan [facility] Start: 1994 Tobacco Counseling Tobacco Counseling [facility] Payers Date Payer Category Payer Private Health Insurance [facility] [employer] [id number] 2022-Present [phone] [address] [address] [place] [address] [id number] 1994 Unknown [id number] 1994 Unknown [id number] 1994 Unknown [id number] 1994 Unknown [id number] 1994 Unknown [id number] 1959 Unknown [id number] Unknown [id number] Social History Date Type Detail Facility Start: 10-07-2022 End: 01-21-2023 Sex Assigned At [facility] Start: 01-14-2023 [facility] History of tobacco use Cigarette Smoker [facility] Start: 01-14-2023 Tobacco use and exposure Smoke less tobacco non-user [facility] Start: 09-15-2023 Alcohol intake Lifetime non-d minerva (finding) [facility] Start: 10-07-2022 End: 01-21-2023 History of Social function [facility] Do you belong to any clubs or organizations such as mosque groups, unions, fraternal or athletic groups, or school groups? No [facility] Are you now , , , , never or living with a partner? [facility] How often to you hav e a drink containing alcohol? Never [facility] How many standard dr inks containing alcohol do you have on a typical day? Patient does not drink [facility] How hard is it for y ou to pay for the very basics like food, housing, medical care, and heating Not very hard [facility] Start: 11-26-2021 Education 21 [facility] Start: 1994 Sex Assigned At Female [facility] Start: 08-03-2021 Gender identity Identifies as female gender (finding) [facility] History of Present illness Narrative 09-15-2023 FRANK Sanabria - 09/15/2023 9:30 AM EST Note Date & Type Note Facility 09-15-2023 History of Present illness Narrative Images from the original note were not included. [address] [phone] Date of Service: 09/15/2023 Thank you for [...] Performed by Emmanuel Spencer MD PhD at [facility] reviewed. Social History Tobacco Use Smoking [...] of widespread pain Patient established care with ct on 02/11/2023 ICD-10-CM 1. Fibromyalgia M79.7 Orders [...] or corrected. Thank you for your understanding. [facility] Shakira Estrada PA-C [address] [place] [address] Office [phone] FRANK Sanabria 09/15/23 1033 documented in this encounter [facility] Evaluation note 08-30-2022 Note Date & Type Note Facility 08-30-2022 Evaluation note Encounter Date Diagnosis Assessment Notes Aug, Patient left without being seen (ICD-10 - Z53.21) [facility] Other Evaluation note 09-02-2021 Note Date & [...] Patient care instructions given in writting by [facility] Care At Home document. [facility] Other History general Narrative - Reported 07-24-2021 Note Date & Type Note Facility 07-24-2021 History general N arrative - Reported Type Surgical History tonsillectomy and adenoidectomy 07/2021 [facility] Other Evaluation note Note Date & Type [...] Contact Rehabilitation Diagnoses [place] [address] [place] [address] [address] [place] [address] [facility] [address] [place] [address] Referral ID Status Reason Start Date Expiration Date Visits Requested Visits Authorized [id number] Authorized Specialty Services Required 09/15/2023 09/14/2024 1 1 Specialty Diagnoses / Procedures Referred By Osman t Referred To Contact Diagnoses Fibromyalgia Shakira Estrada PA [address] [facility] [address] [place] [address] Referral ID Status Reason Start Date Expiration Date V isits Requested Visits Authorized [id number] Pending Review 09/15/2023 09/14/2024 1 1 Additional Source Comments REASON FOR VISIT (unrecogniz ed section and content) #17 SILVER VAN, EXPOSURE, LO SS OF TASTE, H/A, RUNNY NOSE, COVID Provider VisitSORE THROAT, CONGESTION, COUGH INFORMATION SOURCE (unrecogn ized section and content) DATE CREATED AUTHOR 09/03/2022 [facility] DATE CREATED AUTHOR AUTHOR'S ORGANIZ ATION 09/18/2023 [facility] DATE CREATED AUTHOR AUTHOR'S ORGANIZ ATION 10/05/2023 [facility] Care Teams (unrecognized sec tion and content) Waiter And Cashier Relationship Specialty Start Date End Date Beti Carver, COMMUNICATIONS STATION MANAGER-UNDERWRITER SOLICITATION DIRECTOR [address], Narinder Burns [place], [place] [id number] PCP - General Family Medicine 11/27/21 FOR [...] BE BASED ON THE PRIMARY CLINICAL RECORDS. [facility], [facility]. provides no warranty or guarantee of the accuracy or completeness of information in this document.
[2023-10-13 09:11] LABS: Glucose Fasting 83 mg/dL (<95)
[2023-10-13 11:29] LABS: Glucose 2 Hour 142 mg/dL (<155)
[2023-10-13 11:33] LABS: Glucose 1 Hour 151 mg/dL (<180)
[2023-10-13 12:48] LABS: Glucose 3 Hour 85 mg/dL (<140)
== END 2023-10-13 08:43 | disposition home or self-care (01) ==
PROVIDERS: Visit Provider Physician Assistant
DX: R73.09 Other abnormal glucose (principal)
CPT/HCPCS: 36415; 82951; 82952